=== PATIENT | female | born 1960 | race Caucasian/White ===

== ENCOUNTER 2022-07-06 21:04 | Inpatient (IN) | payer OTHER ==
[~2022-07-06] VITALS: Ht 165.1 cm; Wt 66.8 kg
[~2022-07-06 21:04] MED LIST: ALBU8.5H PO; BACTDSTA; BACTDSTA PO; BENZ-18; BENZ-18 PO; CEPH500C PO; DECA4TAB PO; DOCU100C16 PO; FAMO20TA5; FAMO20TA5 PO; K-TA10TA PO; LEVE500T5; LEVE500T5 PO; MIRA3350; NYST50SS PO; ONDA-84 PO; PROC10TA5 PO; SENN-83 PO
[2022-07-06] MEDS ORDERED: ROBI1LIQ9 PO (21:52)
[2022-07-06] MEDS: IPRATROPIUM 0.5MG/ALBUTEROL 2.5MG INH SOL UD 3ML (DUONEB) NEB SCH ×2 (22:10→22:21)
[2022-07-06] MEDS ORDERED: MIDAZOLAM INJ 2MG/2ML VIAL (J2250 PER 1MG) IV ONE (22:15)
[2022-07-06 22:18] LABS: BASO # 0.1 10^3/uL (0.0-0.2); BASO % 0.3 % (0.0-1.0); HEMATOCRIT 32.2 % (36.0-47.0); HEMOGLOBIN 10.6 g/dl (12.0-15.5); LYMPH # 0.5 10^3/uL (1.5-5.0); LYMPH % 1.5 % (24.0-44.0); MEAN CORPUSCULAR HEMOGLOBIN 30.9 pg (27.0-33.0); MEAN CORPUSCULAR HGB CONC 32.9 g/dl (32.0-36.5); MEAN CORPUSCULAR VOLUME 93.9 fl (80.0-96.0); MONO # 0.1 10^3/uL (0.0-0.8); MONO % 0.3 % (2.0-8.0); NEUTROPHILS # 31.7 10^3/uL (1.5-8.5); NEUTROPHILS % 95.1 % (36.0-66.0); PLATELET COUNT, AUTOMATED 358 10^3/uL (150-450); RED BLOOD COUNT 3.43 10^6/uL (4.00-5.40)
[2022-07-06 22:20] LABS: WHITE BLOOD COUNT 33.3 10^3/uL (4.0-10.0)
[2022-07-06 22:51] LABS: ALBUMIN 2.7 GM/DL (3.2-5.2); ALT/SGPT 60 U/L (12-78); BILIRUBIN,DIRECT 0.3 MG/DL (0.0-0.2); BILIRUBIN,TOTAL 0.6 MG/DL (0.2-1.0); BLOOD UREA NITROGEN 21 MG/DL (7-18); CALCIUM LEVEL 8.5 MG/DL (8.8-10.2); CARBON DIOXIDE LEVEL 25 MEQ/L (21-32); CHLORIDE LEVEL 99 MEQ/L (98-107); GLOMERULAR FILTRATION RATE > 60.0 (>45); GLUCOSE, FASTING 258 MG/DL (70-100); POTASSIUM SERUM 4.8 MEQ/L (3.5-5.1); SODIUM LEVEL 132 MEQ/L (136-145); TOTAL PROTEIN 6.4 GM/DL (6.4-8.2)
[2022-07-06 22:57] LABS: CK-MB VALUE MASS 2.8 NG/ML (<3.6); MB/CK RELATIVE INDEX 4.52 (< OR =4)
[2022-07-07 00:12] LABS: CK-MB VALUE MASS 3.6 NG/ML (<3.6); MB/CK RELATIVE INDEX 4.93 (< OR =4)
[2022-07-07] MEDS ORDERED: HEPARIN DRIP 25,000 UNITS in IV 1 EA IV SCH ×2 (01:40→05:15)
[2022-07-07] MEDS ORDERED: HEPARIN SOD (PORCINE) 5000UNITS/ML 1ML VIAL/SYRINGE IV ONE (01:40)
[2022-07-07] MEDS ORDERED: methylPREDNISolone 125MG 2ML VIAL IV ONE (01:40)
[2022-07-07] MEDS ORDERED: IPRATROPIUM 0.5MG/ALBUTEROL 2.5MG INH SOL UD 3ML (DUONEB) NEB ONE (02:50)
[2022-07-07] MEDS ORDERED: MIDAZOLAM INJ 2MG/2ML VIAL (J2250 PER 1MG) IV ONE (03:35)
[2022-07-07 03:50] LABS: ABG BASE EXCESS -3.7 (-2.0-2.0); ABG O2 SATURATION 98.5 % (95.0-99.0); ABG PARTIAL PRESSURE CO2 42.3 mmHg (35.0-45.0); ABG STANDARD HCO3 21.4 MEQ/L (22.0-26.0); ABG TOTAL CO2 23.3 MEQ/L (23.0-31.0); ABG pH (ARTERIAL) 7.334 UNITS (7.350-7.450)
[2022-07-07] MEDS ORDERED: CEPH500C PO (04:23)
[2022-07-07] MEDS ORDERED: HOME MED LIST COMPLETE! XX SCH (04:25)
[2022-07-07] MEDS ORDERED: HEPARIN SOD (PORCINE) 5000UNITS/ML 1ML VIAL/SYRINGE IV PRN (05:15)
[2022-07-07] MEDS: INSULIN LISPRO (NovoLOG) PER UNIT SC SCH ×4 (06:00→21:52)
[2022-07-07] MEDS ORDERED: NS 500 ML IV ONE (06:15)
[2022-07-07] MEDS ORDERED: DEXTROSE 50% 50 ML SYRINGE IV PRN (06:15)
[2022-07-07] MEDS ORDERED: GLUCOSE 4GM CHEW TABLET PO PRN (06:15)
[2022-07-07] MEDS ORDERED: IPRATROPIUM 0.5MG/ALBUTEROL 2.5MG INH SOL UD 3ML (DUONEB) NEB PRN (06:15)
[2022-07-07] MEDS ORDERED: GLUCAGON INJ 1MG VIAL SC PRN (06:15)
[2022-07-07] MEDS ORDERED: ASPIRIN 300 MG SUPP PR STA (06:33)
[2022-07-07] MEDS: NS 1,000 ML IV SCH ×2 (06:54→16:15)
[2022-07-07] MEDS: methylPREDNISolone 40MG 1ML VIAL IV SCH ×3 (07:00→18:40)
[2022-07-07] MEDS ORDERED: LevoFLOXacin IV 750 MG in IV 1 EA IV SCH (08:00)
[2022-07-07] MEDS ORDERED: ISOVUE-370 76% 100ML VIAL As Ordered ONE (08:13)
[2022-07-07] MEDS ORDERED: ASPIRIN 325 MG TAB PO ONE (09:00)
[2022-07-07] MEDS: PANTOPRAZOLE 40MG VIAL IV SCH (09:36)
[2022-07-07] MEDS: ENOXAPARIN 60MG/0.6ML SYRINGE (J1650 PER 10MG) SC SCH ×2 (09:36→21:11)
[2022-07-07] MEDS ORDERED: CLOPIDOGREL 300 MG TAB (PLAVIX) PO STA (10:43)
[2022-07-07] MEDS ORDERED: ATORVASTATIN 20 MG TAB PO ONE (10:45)
[2022-07-07] MEDS ORDERED: VANCOMYCIN HCL 1,000 MG, VIAL MATE ADAPTER 1 EACH in NS 250 ML IV SCH (10:50)
[2022-07-07] MEDS ORDERED: NITROGLYCERIN 0.4 MG SUBL TABLET SL PRN (10:50)
[2022-07-07] MEDS ORDERED: CLOPIDOGREL 75 MG TAB PO STA (10:56)
[2022-07-07 10:57] LABS: ABG BASE EXCESS -0.4 (-2.0-2.0); ABG HCO3 23.7 MEQ/L (22.0-26.0); ABG O2 SATURATION 96.9 % (95.0-99.0); ABG PARTIAL PRESSURE CO2 36.7 mmHg (35.0-45.0); ABG PARTIAL PRESSURE O2 95.7 mmHg (75.0-100.0); ABG STANDARD HCO3 24.1 MEQ/L (22.0-26.0); ABG TOTAL CO2 24.8 MEQ/L (23.0-31.0); ABG pH (ARTERIAL) 7.428 UNITS (7.350-7.450)
[2022-07-07 11:32] LABS: HEMATOCRIT 26.9 % (36.0-47.0); MEAN CORPUSCULAR HEMOGLOBIN 30.9 pg (27.0-33.0); MEAN CORPUSCULAR HGB CONC 33.5 g/dl (32.0-36.5); MEAN CORPUSCULAR VOLUME 92.4 fl (80.0-96.0); RED BLOOD COUNT 2.91 10^6/uL (4.00-5.40); WHITE BLOOD COUNT 22.4 10^3/uL (4.0-10.0)
[2022-07-07 11:35] LABS: PLATELET COUNT, AUTOMATED 244 10^3/uL (150-450)
[2022-07-07 11:49] VITALS: BP 100/57
[2022-07-07 11:54] LABS: LYMPHOCYTES 2 % (16-44); NEUTROPHILS 97 % (28-66)
[2022-07-07 11:57] LABS: ANISOCYTOSIS 1+; PLATELET ESTIMATE NORMAL (NORMAL)
[2022-07-07 12:02] LABS: ALBUMIN 2.4 GM/DL (3.2-5.2); ALT/SGPT 51 U/L (12-78); BILIRUBIN,TOTAL 0.7 MG/DL (0.2-1.0); BLOOD UREA NITROGEN 22 MG/DL (7-18); CALCIUM LEVEL 8.2 MG/DL (8.8-10.2); CARBON DIOXIDE LEVEL 24 MEQ/L (21-32); CHLORIDE LEVEL 103 MEQ/L (98-107); CHOLESTEROL LEVEL 163 MG/DL (<200); CHOLESTEROL RISK RATIO 2.397 (<5); CREATININE FOR GFR 0.61 MG/DL (0.55-1.30); GLOMERULAR FILTRATION RATE > 60.0 (>45); GLUCOSE, FASTING 125 MG/DL (70-100); HDL CHOLESTEROL 68 MG/DL (>40); LDL CHOLESTEROL 78 MG/DL (<100); NON-HDL-C 95 MG/DL; POTASSIUM SERUM 4.3 MEQ/L (3.5-5.1); SODIUM LEVEL 134 MEQ/L (136-145); TOTAL PROTEIN 5.9 GM/DL (6.4-8.2); TRIGLYCERIDES LEVEL 86 MG/DL (<150)
[2022-07-07 12:03] LABS: CK-MB VALUE MASS 8.6 NG/ML (<3.6); MB/CK RELATIVE INDEX 8.87 (< OR =4)
[2022-07-07] MEDS: PIPERACILLIN/TAZOBACTAM SOD 4.5 GM in D5W MINI-BAG PLUS 50 ML IV SCH ×2 (14:32→21:04)
[2022-07-07 14:57] LABS: MUCUS, URINE SMALL AMOUNT (NEGATIVE); SQUAMOUS EPITHELIAL CELL URINE SMALL AMOUNT /hpf (SMALL AMT)
[2022-07-07 14:59] LABS: BACTERIA, URINE NONE SEEN
[2022-07-07 15:00] LABS: AMORPHOUS SEDIMENT, URINE SMALL AMOUNT (NEGATIVE)
[2022-07-07] MEDS ORDERED: VANCOMYCIN HCL 750 MG, VIAL MATE ADAPTER 1 EACH in D5W 250 ML IV ONE (15:00)
[2022-07-07] MEDS ORDERED: VANCOMYCIN HCL 500 MG in D5W MINI-BAG PLUS 100 ML IV ONE (16:00)
[2022-07-07] MEDS: BENZONATATE 100MG CAPSULE PO PRN (16:24)
[2022-07-07 16:54] VITALS: BP 101/61
[2022-07-07 20:00] VITALS: BP 99/65
[2022-07-07] MEDS: guaiFENesin ER 600 MG TAB PO SCH (21:03)
[2022-07-07] MEDS: DOXYCYCLINE HYCLATE 100 MG in D5W MINI-BAG PLUS 100 ML IV SCH (21:12)
[2022-07-07 22:00] VITALS: BP 105/68
[2022-07-08] VITALS (16 sets, daily range): BP systolic 98–112; BP diastolic 51–76; O2SAT 93–99
[2022-07-08] MEDS: methylPREDNISolone 40MG 1ML VIAL IV SCH ×4 (02:21→18:24)
[2022-07-08] MEDS: NS 1,000 ML IV SCH (02:21)
[2022-07-08] MEDS: PIPERACILLIN/TAZOBACTAM SOD 4.5 GM in D5W MINI-BAG PLUS 50 ML IV SCH ×4 (02:21→20:43)
[2022-07-08] MEDS ORDERED: VANCOMYCIN HCL 1,000 MG, VIAL MATE ADAPTER 1 EACH in D5W 250 ML IV SCH (03:00)
[2022-07-08 05:23] LABS: HEMATOCRIT 25.1 % (36.0-47.0); HEMOGLOBIN 8.2 g/dl (12.0-15.5); MEAN CORPUSCULAR HEMOGLOBIN 30.7 pg (27.0-33.0); MEAN CORPUSCULAR HGB CONC 32.7 g/dl (32.0-36.5); PLATELET COUNT, AUTOMATED 235 10^3/uL (150-450); RED BLOOD COUNT 2.67 10^6/uL (4.00-5.40); WHITE BLOOD COUNT 26.4 10^3/uL (4.0-10.0)
[2022-07-08 05:39] LABS: INR 1.17; PROTHROMBIN TIME 15.3 SECONDS (12.7-14.5)
[2022-07-08 05:40] LABS: PARTIAL THROMBOPLASTIN TIME 41.7 SECONDS (25.9-37.0)
[2022-07-08 05:57] LABS: ALBUMIN 2.2 GM/DL (3.2-5.2); ALT/SGPT 42 U/L (12-78); BILIRUBIN,TOTAL 0.8 MG/DL (0.2-1.0); BLOOD UREA NITROGEN 19 MG/DL (7-18); CALCIUM LEVEL 8.1 MG/DL (8.8-10.2); CARBON DIOXIDE LEVEL 27 MEQ/L (21-32); CHLORIDE LEVEL 104 MEQ/L (98-107); CREATININE FOR GFR 0.64 MG/DL (0.55-1.30); GLOMERULAR FILTRATION RATE > 60.0 (>45); GLUCOSE, FASTING 140 MG/DL (70-100); POTASSIUM SERUM 4.2 MEQ/L (3.5-5.1); SODIUM LEVEL 137 MEQ/L (136-145); TOTAL PROTEIN 5.5 GM/DL (6.4-8.2)
[2022-07-08] MEDS: INSULIN LISPRO (NovoLOG) PER UNIT SC SCH ×3 (06:00→17:55)
[2022-07-08 06:48] LABS: NEUTROPHILS 100 % (28-66)
[2022-07-08 06:49] LABS: ANISOCYTOSIS 1+; PLATELET ESTIMATE NORMAL (NORMAL)
[2022-07-08] MEDS: PANTOPRAZOLE 40MG VIAL IV SCH (08:58)
[2022-07-08] MEDS: ASPIRIN 81 MG CHEW TABLET PO SCH (08:59)
[2022-07-08] MEDS: guaiFENesin ER 600 MG TAB PO SCH ×2 (08:59→20:42)
[2022-07-08] MEDS ORDERED: CLOPIDOGREL 75 MG TAB PO SCH (09:00)
[2022-07-08] MEDS: DOXYCYCLINE HYCLATE 100 MG in D5W MINI-BAG PLUS 100 ML IV SCH ×2 (10:44→20:43)
[2022-07-08] MEDS: ATORVASTATIN 20 MG TAB PO SCH (20:42)
[2022-07-08] MEDS: BENZONATATE 100MG CAPSULE PO PRN (21:28)
[2022-07-09] VITALS (11 sets, daily range): BP systolic 111–121; BP diastolic 56–78; O2SAT 96–98
[2022-07-09] MEDS: INSULIN LISPRO (NovoLOG) PER UNIT SC SCH ×2 (00:28→06:00)
[2022-07-09] MEDS: methylPREDNISolone 40MG 1ML VIAL IV SCH ×2 (00:39→06:32)
[2022-07-09] MEDS: PIPERACILLIN/TAZOBACTAM SOD 4.5 GM in D5W MINI-BAG PLUS 50 ML IV SCH ×4 (00:39→20:48)
[2022-07-09] MEDS: CARVedilol 3.125 MG TAB PO SCH ×2 (08:41→20:53)
[2022-07-09] MEDS: ENTRESTO 24-26MG TABLET (SACUBITRIL/VALSARTAN) PO SCH ×2 (08:42→20:51)
[2022-07-09] MEDS: MIDODRINE 5 MG TAB PO SCH ×3 (08:54→16:13)
[2022-07-09] MEDS: predniSONE 20 MG TAB PO SCH ×2 (08:54→20:53)
[2022-07-09] MEDS: guaiFENesin ER 600 MG TAB PO SCH ×2 (08:54→20:51)
[2022-07-09] MEDS: ASPIRIN 81 MG CHEW TABLET PO SCH (08:54)
[2022-07-09] MEDS: PANTOPRAZOLE 40MG VIAL IV SCH (08:55)
[2022-07-09] MEDS: DOXYCYCLINE HYCLATE 100 MG in D5W MINI-BAG PLUS 100 ML IV SCH ×2 (10:42→20:54)
[2022-07-09] MEDS: LACTOBACILLUS ACIDOPHILUS CAP (BACID) PO SCH ×3 (12:20→20:52)
[2022-07-09] MEDS: ATORVASTATIN 20 MG TAB PO SCH (20:52)
[2022-07-10] VITALS (16 sets, daily range): BP systolic 82–102; BP diastolic 50–64; O2SAT 93
[2022-07-10] MEDS: PIPERACILLIN/TAZOBACTAM SOD 4.5 GM in D5W MINI-BAG PLUS 50 ML IV SCH ×4 (02:29→22:17)
[2022-07-10] MEDS ORDERED: ACETAMINOPHEN TAB 650MG DOSE (2X325MG) PO PRN (02:45)
[2022-07-10 06:20] LABS: HEMATOCRIT 23.2 % (36.0-47.0); HEMOGLOBIN 7.6 g/dl (12.0-15.5); MEAN CORPUSCULAR HEMOGLOBIN 30.3 pg (27.0-33.0); MEAN CORPUSCULAR HGB CONC 32.8 g/dl (32.0-36.5); MEAN CORPUSCULAR VOLUME 92.4 fl (80.0-96.0); PLATELET COUNT, AUTOMATED 185 10^3/uL (150-450); RED BLOOD COUNT 2.51 10^6/uL (4.00-5.40); WHITE BLOOD COUNT 13.6 10^3/uL (4.0-10.0)
[2022-07-10 06:45] LABS: BLOOD UREA NITROGEN 16 MG/DL (7-18); CALCIUM LEVEL 8.3 MG/DL (8.8-10.2); CARBON DIOXIDE LEVEL 26 MEQ/L (21-32); CHLORIDE LEVEL 104 MEQ/L (98-107); GLOMERULAR FILTRATION RATE > 60.0 (>45); GLUCOSE, FASTING 110 MG/DL (70-100); SODIUM LEVEL 138 MEQ/L (136-145)
[2022-07-10 08:52] LABS: HEMATOCRIT 23.7 % (36.0-47.0); HEMOGLOBIN 7.8 g/dl (12.0-15.5)
[2022-07-10] MEDS: CARVedilol 3.125 MG TAB PO SCH ×2 (09:00→21:00)
[2022-07-10] MEDS: SPIRONOLACTONE 6.25 MG PER 1/4 TAB PO SCH ×2 (09:00→09:50)
[2022-07-10] MEDS: ENTRESTO 24-26MG TABLET (SACUBITRIL/VALSARTAN) PO SCH ×2 (09:00→21:00)
[2022-07-10] MEDS: ASPIRIN 81 MG CHEW TABLET PO SCH (09:50)
[2022-07-10] MEDS: predniSONE 20 MG TAB PO SCH ×2 (09:53→21:22)
[2022-07-10] MEDS: LACTOBACILLUS ACIDOPHILUS CAP (BACID) PO SCH ×4 (09:53→21:22)
[2022-07-10] MEDS: MIDODRINE 5 MG TAB PO SCH ×3 (09:53→15:59)
[2022-07-10] MEDS: guaiFENesin ER 600 MG TAB PO SCH ×2 (09:54→21:22)
[2022-07-10] MEDS: LevoFLOXacin 750 MG TABLET PO SCH (09:54)
[2022-07-10] MEDS ORDERED: ACETAMINOPHEN TAB 650MG DOSE (2X325MG) PO ONE (11:00)
[2022-07-10] MEDS ORDERED: diphenhydrAMINE 25MG CAP PO ONE (11:00)
[2022-07-10] MEDS ORDERED: NS 500 ML IV ONE ×2 (11:00→17:40)
[2022-07-10] MEDS: PANTOPRAZOLE 40MG VIAL IV SCH (11:15)
[2022-07-10] MEDS: ATORVASTATIN 20 MG TAB PO SCH (21:22)
[2022-07-10 23:27] LABS: HEMATOCRIT 27.6 % (36.0-47.0); HEMOGLOBIN 9.6 g/dl (12.0-15.5)
[2022-07-11] MEDS: PIPERACILLIN/TAZOBACTAM SOD 4.5 GM in D5W MINI-BAG PLUS 50 ML IV SCH ×4 (03:35→20:37)
[2022-07-11] MEDS: LevoFLOXacin 750 MG TABLET PO SCH (05:03)
[2022-07-11 05:44] VITALS: BP 106/66
[2022-07-11 06:44] LABS: HEMATOCRIT 28.9 % (36.0-47.0); HEMOGLOBIN 10.1 g/dl (12.0-15.5); MEAN CORPUSCULAR HGB CONC 34.9 g/dl (32.0-36.5); MEAN CORPUSCULAR VOLUME 88.7 fl (80.0-96.0); PLATELET COUNT, AUTOMATED 142 10^3/uL (150-450); RED BLOOD COUNT 3.26 10^6/uL (4.00-5.40); WHITE BLOOD COUNT 8.2 10^3/uL (4.0-10.0)
[2022-07-11 07:13] LABS: BLOOD UREA NITROGEN 12 MG/DL (7-18); CALCIUM LEVEL 8.5 MG/DL (8.8-10.2); CARBON DIOXIDE LEVEL 24 MEQ/L (21-32); CHLORIDE LEVEL 104 MEQ/L (98-107); CREATININE FOR GFR 0.35 MG/DL (0.55-1.30); GLOMERULAR FILTRATION RATE > 60.0 (>45); GLUCOSE, FASTING 98 MG/DL (70-100); POTASSIUM SERUM 3.3 MEQ/L (3.5-5.1); SODIUM LEVEL 134 MEQ/L (136-145)
[2022-07-11] MEDS ORDERED: POTASSIUM CHLORIDE 10MEQ SR TABLET PO ONE (08:00)
[2022-07-11 08:15] VITALS: BP 107/70
[2022-07-11] MEDS: PANTOPRAZOLE 40MG VIAL IV SCH (08:15)
[2022-07-11] MEDS: guaiFENesin ER 600 MG TAB PO SCH ×2 (08:16→20:37)
[2022-07-11] MEDS: MIDODRINE 5 MG TAB PO SCH ×3 (08:16→17:30)
[2022-07-11] MEDS: LACTOBACILLUS ACIDOPHILUS CAP (BACID) PO SCH ×4 (08:16→20:38)
[2022-07-11] MEDS: predniSONE 20 MG TAB PO SCH ×2 (08:16→20:38)
[2022-07-11] MEDS: CARVedilol 3.125 MG TAB PO SCH ×2 (08:16→20:38)
[2022-07-11] MEDS: ASPIRIN 81 MG CHEW TABLET PO SCH (08:16)
[2022-07-11] MEDS: ENTRESTO 24-26MG TABLET (SACUBITRIL/VALSARTAN) PO SCH ×2 (08:16→20:39)
[2022-07-11 09:00] VITALS: O2SAT 95
[2022-07-11 09:02] LABS: CK-MB VALUE MASS < 1.0 NG/ML (<3.6); CPK CREATINE PHOSPHOKINASE 70 U/L (26-192); MB/CK RELATIVE INDEX 1.43 (< OR =4)
[2022-07-11 14:00] VITALS: BP 103/69
[2022-07-11] MEDS: ATORVASTATIN 20 MG TAB PO SCH (20:38)
[2022-07-11 22:00] VITALS: BP 113/70
[2022-07-12] MEDS: PIPERACILLIN/TAZOBACTAM SOD 4.5 GM in D5W MINI-BAG PLUS 50 ML IV SCH ×4 (01:59→20:20)
[2022-07-12 02:30] VITALS: O2SAT 96
[2022-07-12] MEDS: LevoFLOXacin 750 MG TABLET PO SCH (05:14)
[2022-07-12 06:00] VITALS: BP 106/73
[2022-07-12 06:38] LABS: HEMATOCRIT 30.9 % (36.0-47.0); HEMOGLOBIN 10.3 g/dl (12.0-15.5); MEAN CORPUSCULAR HEMOGLOBIN 29.8 pg (27.0-33.0); MEAN CORPUSCULAR HGB CONC 33.3 g/dl (32.0-36.5); MEAN CORPUSCULAR VOLUME 89.3 fl (80.0-96.0); PLATELET COUNT, AUTOMATED 138 10^3/uL (150-450); RED BLOOD COUNT 3.46 10^6/uL (4.00-5.40); WHITE BLOOD COUNT 5.5 10^3/uL (4.0-10.0)
[2022-07-12 07:06] LABS: BLOOD UREA NITROGEN 15 MG/DL (7-18); CALCIUM LEVEL 8.3 MG/DL (8.8-10.2); CARBON DIOXIDE LEVEL 25 MEQ/L (21-32); CHLORIDE LEVEL 105 MEQ/L (98-107); CREATININE FOR GFR 0.34 MG/DL (0.55-1.30); GLOMERULAR FILTRATION RATE > 60.0 (>45); GLUCOSE, FASTING 103 MG/DL (70-100); POTASSIUM SERUM 3.6 MEQ/L (3.5-5.1); SODIUM LEVEL 138 MEQ/L (136-145)
[2022-07-12] MEDS: LACTOBACILLUS ACIDOPHILUS CAP (BACID) PO SCH ×4 (08:20→20:19)
[2022-07-12] MEDS: guaiFENesin ER 600 MG TAB PO SCH ×2 (08:20→20:20)
[2022-07-12 08:21] VITALS: BP 100/66
[2022-07-12] MEDS: predniSONE 20 MG TAB PO SCH ×2 (08:21→20:19)
[2022-07-12] MEDS: ASPIRIN 81 MG CHEW TABLET PO SCH (08:21)
[2022-07-12] MEDS: MIDODRINE 5 MG TAB PO SCH ×2 (08:21→12:39)
[2022-07-12] MEDS: CARVedilol 3.125 MG TAB PO SCH (08:21)
[2022-07-12] MEDS: PANTOPRAZOLE 40MG VIAL IV SCH (08:21)
[2022-07-12] MEDS: ENTRESTO 24-26MG TABLET (SACUBITRIL/VALSARTAN) PO SCH (08:22)
[2022-07-12 12:40] VITALS: BP 121/77
[2022-07-12] MEDS: SPIRONOLACTONE 12.5MG PER 1/2 TABLET PO SCH (13:55)
[2022-07-12 14:00] VITALS: BP 108/68
[2022-07-12] MEDS: ATORVASTATIN 20 MG TAB PO SCH (20:20)
[2022-07-12 22:00] VITALS: BP 112/68
[2022-07-13 02:37] VITALS: O2SAT 97
[2022-07-13] MEDS: PIPERACILLIN/TAZOBACTAM SOD 4.5 GM in D5W MINI-BAG PLUS 50 ML IV SCH ×4 (02:37→20:21)
[2022-07-13] MEDS: LevoFLOXacin 750 MG TABLET PO SCH (05:27)
[2022-07-13 06:00] VITALS: BP 115/69
[2022-07-13 06:07] LABS: HEMATOCRIT 29.8 % (36.0-47.0); HEMOGLOBIN 10.2 g/dl (12.0-15.5); MEAN CORPUSCULAR HEMOGLOBIN 30.8 pg (27.0-33.0); MEAN CORPUSCULAR HGB CONC 34.2 g/dl (32.0-36.5); PLATELET COUNT, AUTOMATED 119 10^3/uL (150-450); RED BLOOD COUNT 3.31 10^6/uL (4.00-5.40); WHITE BLOOD COUNT 3.9 10^3/uL (4.0-10.0)
[2022-07-13 06:42] LABS: BLOOD UREA NITROGEN 14 MG/DL (7-18); CALCIUM LEVEL 8.3 MG/DL (8.8-10.2); CARBON DIOXIDE LEVEL 25 MEQ/L (21-32); CHLORIDE LEVEL 106 MEQ/L (98-107); CREATININE FOR GFR 0.44 MG/DL (0.55-1.30); GLOMERULAR FILTRATION RATE > 60.0 (>45); GLUCOSE, FASTING 113 MG/DL (70-100); POTASSIUM SERUM 3.7 MEQ/L (3.5-5.1); SODIUM LEVEL 138 MEQ/L (136-145)
[2022-07-13] MEDS: PANTOPRAZOLE 40MG VIAL IV SCH (08:09)
[2022-07-13] MEDS: LACTOBACILLUS ACIDOPHILUS CAP (BACID) PO SCH ×4 (08:09→20:20)
[2022-07-13] MEDS: predniSONE 20 MG TAB PO SCH ×2 (08:09→20:21)
[2022-07-13] MEDS: guaiFENesin ER 600 MG TAB PO SCH ×2 (08:09→20:21)
[2022-07-13] MEDS: SPIRONOLACTONE 12.5MG PER 1/2 TABLET PO SCH (08:10)
[2022-07-13] MEDS: ASPIRIN 81 MG CHEW TABLET PO SCH (08:10)
[2022-07-13] MEDS: ENTRESTO 24-26MG TABLET (SACUBITRIL/VALSARTAN) PO SCH ×2 (08:10→20:25)
[2022-07-13 15:00] VITALS: BP 99/66
[2022-07-13] MEDS: ATORVASTATIN 20 MG TAB PO SCH (20:21)
[2022-07-13 20:25] VITALS: BP 100/66
[2022-07-14 00:59] VITALS: O2SAT 95
[2022-07-14] MEDS: PIPERACILLIN/TAZOBACTAM SOD 4.5 GM in D5W MINI-BAG PLUS 50 ML IV SCH ×2 (02:14→07:54)
[2022-07-14] MEDS: LevoFLOXacin 750 MG TABLET PO SCH (05:19)
[2022-07-14 05:28] VITALS: BP 127/78
[2022-07-14 06:53] LABS: HEMATOCRIT 31.1 % (36.0-47.0); HEMOGLOBIN 10.6 g/dl (12.0-15.5); MEAN CORPUSCULAR HGB CONC 34.1 g/dl (32.0-36.5); MEAN CORPUSCULAR VOLUME 90.9 fl (80.0-96.0); PLATELET COUNT, AUTOMATED 107 10^3/uL (150-450); RED BLOOD COUNT 3.42 10^6/uL (4.00-5.40); WHITE BLOOD COUNT 2.8 10^3/uL (4.0-10.0)
[2022-07-14 07:17] LABS: BLOOD UREA NITROGEN 11 MG/DL (7-18); CALCIUM LEVEL 8.1 MG/DL (8.8-10.2); CARBON DIOXIDE LEVEL 24 MEQ/L (21-32); CHLORIDE LEVEL 105 MEQ/L (98-107); GLOMERULAR FILTRATION RATE > 60.0 (>45); GLUCOSE, FASTING 116 MG/DL (70-100); POTASSIUM SERUM 3.3 MEQ/L (3.5-5.1); SODIUM LEVEL 137 MEQ/L (136-145)
[2022-07-14] MEDS: guaiFENesin ER 600 MG TAB PO SCH (07:58)
[2022-07-14] MEDS: ENTRESTO 24-26MG TABLET (SACUBITRIL/VALSARTAN) PO SCH (07:59)
[2022-07-14] MEDS: PANTOPRAZOLE 40MG VIAL IV SCH (07:59)
[2022-07-14] MEDS: predniSONE 20 MG TAB PO SCH (07:59)
[2022-07-14] MEDS: ASPIRIN 81 MG CHEW TABLET PO SCH (07:59)
[2022-07-14] MEDS: SPIRONOLACTONE 12.5MG PER 1/2 TABLET PO SCH (07:59)
[2022-07-14] MEDS: LACTOBACILLUS ACIDOPHILUS CAP (BACID) PO SCH (07:59)
[2022-07-14] MEDS ORDERED: POTASSIUM CHLORIDE 10MEQ SR TABLET PO ONE (09:00)
[2022-07-14] MEDS ORDERED: ASPI81CH8 PO (09:33)
[2022-07-14] MEDS ORDERED: BACITAB PO (09:33)
[2022-07-14] MEDS ORDERED: AMOX875T2 PO (09:33)
[2022-07-14] MEDS ORDERED: ENTR1TAB PO (09:33)
[2022-07-14] MEDS ORDERED: ATOR1TAB21 PO (09:33)
[2022-07-14] MEDS ORDERED: SELF1KIT MC (09:33)
[2022-07-14] MEDS ORDERED: ALDA25TA2 PO (09:33)
[2022-07-14] MEDS ORDERED: PRED10TA2 PO (09:33)
[2022-07-14] MEDS ORDERED: MUCI600T31 PO (09:33)
== END 2022-07-14 12:17 | disposition home or self-care (01) | DRG 720 ==
LOC: M ED 21:04 → M ED INP 07-07 06:01 → M PCU 07-07 06:01 → ENRESERV 07-07 10:16 → M PCU 07-07 11:37 → M MSPAV 07-09 10:06
PROVIDERS: ADMIT Internal Medicine; ATTEND General Practice
PROC: 30233N1 Transfusion of Nonautologous Red Blood Cells into Peripheral Vein, Percutaneous Approach (ICD-10-PCS; principal; 2022-07-10)
DX: A41.9 Sepsis, unspecified organism (principal); J96.21 Acute and chronic respiratory failure with hypoxia; I21.4 Non-ST elevation (NSTEMI) myocardial infarction; J15.1 Pneumonia due to Pseudomonas; C79.31 Secondary malignant neoplasm of brain; C79.70 Secondary malignant neoplasm of unspecified adrenal gland; C78.7 Secondary malignant neoplasm of liver and intrahepatic bile duct; J96.22 Acute and chronic respiratory failure with hypercapnia; I50.22 Chronic systolic (congestive) heart failure; I95.2 Hypotension due to drugs; J44.1 Chronic obstructive pulmonary disease with (acute) exacerbation; I51.81 Takotsubo syndrome; E87.1 Hypo-osmolality and hyponatremia; C34.90 Malignant neoplasm of unspecified part of unspecified bronchus or lung; Z92.21 Personal history of antineoplastic chemotherapy; Z79.899 Other long term (current) drug therapy; Z79.82 Long term (current) use of aspirin; Z66 Do not resuscitate; Z95.0 Presence of cardiac pacemaker; Z87.891 Personal history of nicotine dependence; K21.9 Gastro-esophageal reflux disease without esophagitis

== ENCOUNTER 2022-08-03 19:14 | Inpatient (IN) | payer OTHER ==
[~2022-08-03] VITALS: Ht 165.1 cm; Wt 62.0 kg
[~2022-08-03 19:14] MED LIST changes: +ALDA25TA2 PO; +AMOX875T2 PO; +ASPI81CH8 PO; +ATOR1TAB21 PO; +BACITAB PO; +ENTR1TAB PO; +MUCI600T31 PO; +PRED10TA2 PO; +ROBI1LIQ9 PO; +SELF1KIT MC
[2022-08-03] MEDS ORDERED: NS 1,850 ML in IV 1 EA IV ONE (19:50)
[2022-08-03] MEDS ORDERED: CEFEPIME HCL 2 GM in D5W MINI-BAG PLUS 50 ML IV ONE (19:50)
[2022-08-03] MEDS ORDERED: ACETAMINOPHEN TAB 650MG DOSE (2X325MG) PO ONE (20:00)
[2022-08-03 20:33] LABS: HEMATOCRIT 25.4 % (36.0-47.0); HEMOGLOBIN 8.5 g/dl (12.0-15.5); MEAN CORPUSCULAR HEMOGLOBIN 31.1 pg (27.0-33.0); MEAN CORPUSCULAR HGB CONC 33.5 g/dl (32.0-36.5); PLATELET COUNT, AUTOMATED 41 10^3/uL (150-450); RED BLOOD COUNT 2.73 10^6/uL (4.00-5.40); WHITE BLOOD COUNT 2.6 10^3/uL (4.0-10.0)
[2022-08-03 20:46] LABS: ATYPICAL LYMPH 4 % (0-5); LYMPHOCYTES 8 % (16-44); MONOCYTES 15 % (0-5); MYELOCYTES 5 % (0-0); NEUTROPHILS 68 % (28-66); PLATELET ESTIMATE MARKED DECREASE (NORMAL)
[2022-08-03 20:47] LABS: ANISOCYTOSIS 1+; POIKILOCYTOSIS 1+; POLYCHROMASIA 1+
[2022-08-03 20:48] LABS: TOXIC GRANULATION 1+; TOXIC VACUOLATION 1+
[2022-08-03 21:04] LABS: CK-MB VALUE MASS < 1.0 NG/ML (<3.6); CPK CREATINE PHOSPHOKINASE 51 U/L (26-192); MB/CK RELATIVE INDEX 1.96 (< OR =4)
[2022-08-03 21:38] LABS: ALBUMIN 2.3 GM/DL (3.2-5.2); BILIRUBIN,DIRECT 0.5 MG/DL (0.0-0.2); BILIRUBIN,TOTAL 0.8 MG/DL (0.2-1.0); CALCIUM LEVEL 7.7 MG/DL (8.8-10.2); CREATININE FOR GFR 1.31 MG/DL (0.55-1.30); GLOMERULAR FILTRATION RATE 43.7 (>45); POTASSIUM SERUM 2.8 MEQ/L (3.5-5.1); THYROID STIMULATING HORMONE 0.372 uIU/ML (0.358-3.740); TOTAL PROTEIN 5.1 GM/DL (6.4-8.2)
[2022-08-03] MEDS ORDERED: KCL 10MEQ/100ML SWI (KRUN) 10 MEQ in IV 1 EA IV ONE (22:00)
[2022-08-03] MEDS ORDERED: POTASSIUM CHLORIDE 10MEQ SR TABLET PO ONE (22:00)
[2022-08-03] MEDS ORDERED: IPRATROPIUM 0.5MG/ALBUTEROL 2.5MG INH SOL UD 3ML (DUONEB) NEB PRN (22:15)
[2022-08-03] MEDS ORDERED: PIPERACILLIN/TAZOBACTAM SOD 3.375 GM in D5W MINI-BAG PLUS 50 ML IV SCH (22:15)
[2022-08-03] MEDS ORDERED: VANCOMYCIN HCL IV ONE (22:15)
[2022-08-03] MEDS ORDERED: FLUID PLACE HOLDER IV ONE (22:15)
[2022-08-03] MEDS: NS 1,000 ML IV SCH (22:15)
[2022-08-03] MEDS ORDERED: ACETAMINOPHEN TAB 650MG DOSE (2X325MG) PO PRN (22:15)
[2022-08-03] MEDS ORDERED: ONDANSETRON 4MG 2ML VIAL IV PRN (22:15)
[2022-08-03] MEDS ORDERED: guaiFENesin ER 600 MG TAB PO PRN (22:15)
[2022-08-03] MEDS: PIPERACILLIN/TAZOBACTAM SOD 4.5 GM in D5W MINI-BAG PLUS 50 ML IV SCH (23:00)
[2022-08-03] MEDS ORDERED: NS 1,000 ML IV ONE (23:10)
[2022-08-03 23:15] LABS: VENOUS HCO3 18.9 MEQ/L (23.0-27.0); VENOUS O2 SATURATION 98.6 % (60.0-80.0); VENOUS PARTIAL PRESSURE CO2 26.2 mmHg (38.0-50.0); VENOUS PARTIAL PRESSURE O2 158.6 mmHg (30.0-50.0); VENOUS PH 7.477 UNITS (7.330-7.430); VENOUS STANDARD HCO3 21.1 MEQ/L; VENOUS TOTAL CO2 19.7 MEQ/L (24.0-28.0)
[2022-08-03 23:30] LABS: INR 1.46; PROTHROMBIN TIME 18.1 SECONDS (12.7-14.5)
[2022-08-03 23:31] LABS: PARTIAL THROMBOPLASTIN TIME 39.3 SECONDS (25.9-37.0)
[2022-08-04] VITALS (8 sets, daily range): BP systolic 98–142; BP diastolic 50–81
[2022-08-04] MEDS ORDERED: VANCOMYCIN HCL 1,000 MG, VIAL MATE ADAPTER 1 EACH in D5W 250 ML IV ONE ×3
[2022-08-04] MEDS ORDERED: PANTOPRAZOLE 40MG VIAL IV ONE
[2022-08-04 01:04] LABS: BLOOD UREA NITROGEN 19 MG/DL (7-18); CARBON DIOXIDE LEVEL 21 MEQ/L (21-32); CHLORIDE LEVEL 109 MEQ/L (98-107); CREATININE FOR GFR 0.97 MG/DL (0.55-1.30); GLOMERULAR FILTRATION RATE > 60.0 (>45); GLUCOSE, FASTING 142 MG/DL (70-100); POTASSIUM SERUM 2.9 MEQ/L (3.5-5.1); SODIUM LEVEL 138 MEQ/L (136-145)
[2022-08-04] MEDS: levETIRAcetam 250MG TABLET (KEPPRA) PO SCH ×3 (01:12→20:17)
[2022-08-04] MEDS ORDERED: SODIUM CHLORIDE 0.9% 1000ML IV ONE (02:00)
[2022-08-04] MEDS: MAG SULF 1GM/100ML (MAG RUN) 1 GM in IV 1 EA IV SCH ×2 (02:57→04:11)
[2022-08-04] MEDS ORDERED: POTASSIUM CHLORIDE 10MEQ SR TABLET PO ONE ×2 (03:00→06:00)
[2022-08-04] MEDS ORDERED: KCL 10MEQ/100ML SWI (KRUN) 10 MEQ in IV 1 EA IV ONE (05:00)
[2022-08-04 05:14] LABS: HEMATOCRIT 21.6 % (36.0-47.0); MEAN CORPUSCULAR HEMOGLOBIN 31.3 pg (27.0-33.0); MEAN CORPUSCULAR HGB CONC 32.4 g/dl (32.0-36.5); MEAN CORPUSCULAR VOLUME 96.4 fl (80.0-96.0); RED BLOOD COUNT 2.24 10^6/uL (4.00-5.40); WHITE BLOOD COUNT 2.9 10^3/uL (4.0-10.0)
[2022-08-04 05:16] LABS: PLATELET COUNT, AUTOMATED 38 10^3/uL (150-450)
[2022-08-04 05:44] LABS: ALBUMIN 1.7 GM/DL (3.2-5.2); ALT/SGPT 18 U/L (12-78); BILIRUBIN,TOTAL 0.6 MG/DL (0.2-1.0); BLOOD UREA NITROGEN 19 MG/DL (7-18); CARBON DIOXIDE LEVEL 20 MEQ/L (21-32); CHLORIDE LEVEL 111 MEQ/L (98-107); CREATININE FOR GFR 0.93 MG/DL (0.55-1.30); GLOMERULAR FILTRATION RATE > 60.0 (>45); GLUCOSE, FASTING 175 MG/DL (70-100); POTASSIUM SERUM 3.5 MEQ/L (3.5-5.1); SODIUM LEVEL 140 MEQ/L (136-145); TOTAL PROTEIN 4.1 GM/DL (6.4-8.2)
[2022-08-04] MEDS ORDERED: NS 500 ML IV ONE (06:00)
[2022-08-04] MEDS: PIPERACILLIN/TAZOBACTAM SOD 4.5 GM in D5W MINI-BAG PLUS 50 ML IV SCH ×4 (06:21→22:43)
[2022-08-04] MEDS: NS 1,000 ML IV SCH ×2 (08:15→17:18)
[2022-08-04] MEDS ORDERED: DOCUSATE SODIUM 100MG CAPSULE PO SCH (09:00)
[2022-08-04] MEDS ORDERED: SENNA 8.6 MG TAB (SENOKOT) PO SCH (09:00)
[2022-08-04] MEDS: LACTOBACILLUS ACIDOPHILUS CAP (BACID) PO SCH (09:02)
[2022-08-04] MEDS ORDERED: ISOVUE-370 76% 100ML VIAL As Ordered ONE (09:25)
[2022-08-04] MEDS: DOXYCYCLINE HYCLATE 100MG TABLET PO SCH ×2 (09:33→20:17)
[2022-08-04] MEDS ORDERED: ATOR80TA59 PO (09:42)
[2022-08-04] MEDS ORDERED: MUCI1TAB16 PO (09:42)
[2022-08-04] MEDS ORDERED: ALDA25TA2 PO (09:42)
[2022-08-04] MEDS ORDERED: ENTR1TAB PO (09:42)
[2022-08-04] MEDS ORDERED: ASPI81CH33 PO (09:42)
[2022-08-04] MEDS ORDERED: HOME MED LIST COMPLETE! XX SCH (09:45)
[2022-08-04 10:32] LABS: FERRITIN 4533 NG/ML (8-252); IRON (FE) 16 UG/DL (50-170); PERCENT SATURATION 15.1 % (13.2-45.0); TOTAL IRON BINDING CAPACITY 106 UG/DL (250-450)
[2022-08-04 12:43] LABS: APPEARANCE, URINE MANUAL CLEAR (CLEAR); COLOR, URINE MANUAL YELLOW (YELLOW)
[2022-08-04 12:49] LABS: BILIRUBIN, URINE MANUAL NEGATIVE (NEGATIVE); BLOOD URINE MANUAL NEGATIVE (NEGATIVE); GLUCOSE, URINE (UA) MANUAL NEGATIVE (NEGATIVE); KETONE, URINE MANUAL NEGATIVE (NEGATIVE); LEUKOCYTE ESTERASE, URINE MAN POSITIVE (NEGATIVE); NITRITE, URINE MANUAL NEGATIVE (NEGATIVE); PROTEIN, URINE MANUAL NEGATIVE (NEGATIVE); UROBILINOGEN, URINE MANUAL NORMAL (NORMAL)
[2022-08-04 13:07] LABS: BACTERIA, URINE NONE SEEN; HYALINE CAST, URINE NONE SEEN /lpf (0-1); RBC, URINE 0-1 /hpf (0-3); SQUAMOUS EPITHELIAL CELL URINE SMALL AMOUNT /hpf (SMALL AMT)
[2022-08-04] MEDS: BUDESONIDE 180MCG INHALER (PULMICORT FLEXHALER) INH SCH ×2 (13:18→19:29)
[2022-08-04 13:40] LABS: HEMATOCRIT 27.9 % (36.0-47.0)
[2022-08-04 13:46] LABS: HEMOGLOBIN 9.4 g/dl (12.0-15.5)
[2022-08-04] MEDS ORDERED: VANCOMYCIN HCL 1,000 MG, VIAL MATE ADAPTER 1 EACH in D5W 250 ML IV SCH (18:00)
[2022-08-04] MEDS: FAMOTIDINE 20 MG TAB PO SCH (20:17)
[2022-08-04] MEDS: ATORVASTATIN 20 MG TAB PO SCH (20:17)
[2022-08-05] VITALS: BP 119/54
[2022-08-05 04:00] VITALS: BP 107/56
[2022-08-05] MEDS: PIPERACILLIN/TAZOBACTAM SOD 4.5 GM in D5W MINI-BAG PLUS 50 ML IV SCH ×4 (05:08→23:32)
[2022-08-05 07:22] VITALS: BP 117/58
[2022-08-05] MEDS: BUDESONIDE 180MCG INHALER (PULMICORT FLEXHALER) INH SCH ×2 (07:33→19:13)
[2022-08-05 07:40] LABS: BLOOD UREA NITROGEN 12 MG/DL (7-18); CALCIUM LEVEL 7.6 MG/DL (8.8-10.2); CARBON DIOXIDE LEVEL 22 MEQ/L (21-32); CHLORIDE LEVEL 110 MEQ/L (98-107); CREATININE FOR GFR 0.34 MG/DL (0.55-1.30); GLOMERULAR FILTRATION RATE > 60.0 (>45); GLUCOSE, FASTING 79 MG/DL (70-100); MAGNESIUM LEVEL 1.9 MG/DL (1.8-2.4); PHOSPHORUS LEVEL 2.8 MG/DL (2.5-4.9); POTASSIUM SERUM 2.6 MEQ/L (3.5-5.1); SODIUM LEVEL 140 MEQ/L (136-145)
[2022-08-05] MEDS ORDERED: MAG SULF 1GM/100ML (MAG RUN) 1 GM in IV 1 EA IV ONE (08:00)
[2022-08-05] MEDS: levETIRAcetam 250MG TABLET (KEPPRA) PO SCH ×2 (08:13→21:18)
[2022-08-05] MEDS: DOXYCYCLINE HYCLATE 100MG TABLET PO SCH (08:13)
[2022-08-05] MEDS: LACTOBACILLUS ACIDOPHILUS CAP (BACID) PO SCH (08:13)
[2022-08-05] MEDS ORDERED: POTASSIUM CHLORIDE 10% LIQ 20 MEQ/15 ML UDC PO ONE ×3 (08:15→13:05)
[2022-08-05] MEDS ORDERED: SODIUM CHLORIDE 0.9% INJ 10 ML SYR IV PRN (09:00)
[2022-08-05 09:12] LABS: HEMATOCRIT 25.4 % (36.0-47.0); HEMOGLOBIN 8.5 g/dl (12.0-15.5); MEAN CORPUSCULAR HEMOGLOBIN 31.4 pg (27.0-33.0); MEAN CORPUSCULAR HGB CONC 33.5 g/dl (32.0-36.5); MEAN CORPUSCULAR VOLUME 93.7 fl (80.0-96.0); RED BLOOD COUNT 2.71 10^6/uL (4.00-5.40); WHITE BLOOD COUNT 10.5 10^3/uL (4.0-10.0)
[2022-08-05] MEDS: SODIUM CHLORIDE 0.9% INJ 10 ML SYR IV SCH (09:14)
[2022-08-05 09:22] LABS: PLATELET COUNT, AUTOMATED 38 10^3/uL (150-450)
[2022-08-05 09:38] LABS: HEMATOCRIT 25.9 % (36.0-47.0); HEMOGLOBIN 8.9 g/dl (12.0-15.5); MEAN CORPUSCULAR HEMOGLOBIN 31.6 pg (27.0-33.0); MEAN CORPUSCULAR HGB CONC 34.4 g/dl (32.0-36.5); MEAN CORPUSCULAR VOLUME 91.8 fl (80.0-96.0); PLATELET COUNT, AUTOMATED 41 10^3/uL (150-450); RED BLOOD COUNT 2.82 10^6/uL (4.00-5.40); WHITE BLOOD COUNT 11.6 10^3/uL (4.0-10.0)
[2022-08-05 09:53] LABS: VITAMIN B12 LEVEL > 2000 PG/ML (247-911)
[2022-08-05] MEDS ORDERED: POTASSIUM CHLORIDE 10MEQ SR TABLET PO ONE ×3 (10:00→14:30)
[2022-08-05 12:30] VITALS: BP 124/59
[2022-08-05 16:28] VITALS: BP 112/67
[2022-08-05 20:25] VITALS: BP 103/51
[2022-08-05] MEDS: BENZONATATE 100MG CAPSULE PO SCH (21:18)
[2022-08-05] MEDS: ATORVASTATIN 20 MG TAB PO SCH (21:18)
[2022-08-05] MEDS: FAMOTIDINE 20 MG TAB PO SCH (21:18)
[2022-08-06] VITALS: BP 100/52
[2022-08-06] MEDS: BENZONATATE 100MG CAPSULE PO SCH ×3 (06:29→20:01)
[2022-08-06] MEDS: PIPERACILLIN/TAZOBACTAM SOD 4.5 GM in D5W MINI-BAG PLUS 50 ML IV SCH ×3 (06:29→18:26)
[2022-08-06] MEDS ORDERED: POTASSIUM CHLORIDE 10MEQ SR TABLET PO ONE ×2 (07:30→10:20)
[2022-08-06 07:46] LABS: HEMATOCRIT 26.1 % (36.0-47.0); HEMOGLOBIN 8.8 g/dl (12.0-15.5); MEAN CORPUSCULAR HEMOGLOBIN 31.3 pg (27.0-33.0); MEAN CORPUSCULAR HGB CONC 33.7 g/dl (32.0-36.5); MEAN CORPUSCULAR VOLUME 92.9 fl (80.0-96.0); RED BLOOD COUNT 2.81 10^6/uL (4.00-5.40); WHITE BLOOD COUNT 17.2 10^3/uL (4.0-10.0)
[2022-08-06 07:49] LABS: PLATELET COUNT, AUTOMATED 45 10^3/uL (150-450)
[2022-08-06] MEDS: BUDESONIDE 180MCG INHALER (PULMICORT FLEXHALER) INH SCH ×2 (07:52→20:00)
[2022-08-06 08:15] VITALS: BP 122/72
[2022-08-06 08:18] LABS: BLOOD UREA NITROGEN 9 MG/DL (7-18); CALCIUM LEVEL 7.9 MG/DL (8.8-10.2); CARBON DIOXIDE LEVEL 26 MEQ/L (21-32); CHLORIDE LEVEL 112 MEQ/L (98-107); GLOMERULAR FILTRATION RATE > 60.0 (>45); GLUCOSE, FASTING 87 MG/DL (70-100); MAGNESIUM LEVEL 1.8 MG/DL (1.8-2.4); POTASSIUM SERUM 3.1 MEQ/L (3.5-5.1); SODIUM LEVEL 142 MEQ/L (136-145)
[2022-08-06 08:35] LABS: LYMPHOCYTES 4 % (16-44); METAMYELOCYTES 3 % (0-0); MONOCYTES 1 % (0-5); MYELOCYTES 2 % (0-0); NEUTROPHILS 81 % (28-66)
[2022-08-06 08:36] LABS: DOHLE BODIES 1+; TOXIC GRANULATION 1+
[2022-08-06 08:37] LABS: GIANT PLATELETS 1+; PLATELET ESTIMATE DECREASED (NORMAL)
[2022-08-06 08:38] LABS: OVALOCYTES 1+
[2022-08-06] MEDS: LACTOBACILLUS ACIDOPHILUS CAP (BACID) PO SCH (09:21)
[2022-08-06] MEDS: levETIRAcetam 250MG TABLET (KEPPRA) PO SCH ×2 (09:22→20:01)
[2022-08-06] MEDS: guaiFENesin ER 600 MG TAB PO SCH ×2 (09:23→20:01)
[2022-08-06] MEDS: SODIUM CHLORIDE 0.9% INJ 10 ML SYR IV SCH (11:17)
[2022-08-06 12:14] VITALS: BP 112/56
[2022-08-06] MEDS: MAG SULF 1GM/100ML (MAG RUN) 1 GM in IV 1 EA IV SCH ×2 (12:46→13:50)
[2022-08-06] MEDS ORDERED: POTASSIUM PHOSPHATE INJ 18 MMOL in D5W 250 ML IV ONE (14:00)
[2022-08-06 16:01] VITALS: BP 127/58
[2022-08-06 19:44] VITALS: BP 114/53
[2022-08-06] MEDS: ATORVASTATIN 20 MG TAB PO SCH (20:00)
[2022-08-06] MEDS: FAMOTIDINE 20 MG TAB PO SCH (20:01)
[2022-08-06 23:56] VITALS: BP 115/64
[2022-08-07] MEDS: PIPERACILLIN/TAZOBACTAM SOD 4.5 GM in D5W MINI-BAG PLUS 50 ML IV SCH ×5 (00:41→22:36)
[2022-08-07 04:14] VITALS: BP 132/78
[2022-08-07] MEDS: BENZONATATE 100MG CAPSULE PO SCH ×3 (04:42→21:05)
[2022-08-07 05:55] LABS: HEMATOCRIT 25.5 % (36.0-47.0); HEMOGLOBIN 8.4 g/dl (12.0-15.5); MEAN CORPUSCULAR HEMOGLOBIN 31.6 pg (27.0-33.0); MEAN CORPUSCULAR HGB CONC 32.9 g/dl (32.0-36.5); MEAN CORPUSCULAR VOLUME 95.9 fl (80.0-96.0); RED BLOOD COUNT 2.66 10^6/uL (4.00-5.40)
[2022-08-07 06:00] LABS: PLATELET COUNT, AUTOMATED 51 10^3/uL (150-450)
[2022-08-07 06:20] LABS: BLOOD UREA NITROGEN 6 MG/DL (7-18); CALCIUM LEVEL 7.6 MG/DL (8.8-10.2); CARBON DIOXIDE LEVEL 25 MEQ/L (21-32); CHLORIDE LEVEL 109 MEQ/L (98-107); CREATININE FOR GFR 0.26 MG/DL (0.55-1.30); GLOMERULAR FILTRATION RATE > 60.0 (>45); GLUCOSE, FASTING 89 MG/DL (70-100); MAGNESIUM LEVEL 1.7 MG/DL (1.8-2.4); PHOSPHORUS LEVEL 2.5 MG/DL (2.5-4.9); POTASSIUM SERUM 3.2 MEQ/L (3.5-5.1); SODIUM LEVEL 140 MEQ/L (136-145)
[2022-08-07] MEDS: BUDESONIDE 180MCG INHALER (PULMICORT FLEXHALER) INH SCH ×2 (07:19→20:44)
[2022-08-07] MEDS: KCL 10MEQ/100ML SWI (KRUN) 10 MEQ in IV 1 EA IV SCH ×4 (07:24→13:59)
[2022-08-07 07:25] LABS: EOSINOPHILS 1 % (0-3); LYMPHOCYTES 5 % (16-44); METAMYELOCYTES 5 % (0-0); MONOCYTES 1 % (0-5); MYELOCYTES 5 % (0-0); NEUTROPHILS 79 % (28-66)
[2022-08-07 07:26] LABS: HYPERSEGMENTED POLYS 1+
[2022-08-07 07:28] LABS: OVALOCYTES 1+; TOXIC GRANULATION 1+
[2022-08-07 07:29] LABS: DOHLE BODIES 1+; PLATELET ESTIMATE DECREASED (NORMAL)
[2022-08-07 08:00] VITALS: BP 119/60
[2022-08-07] MEDS ORDERED: POTASSIUM PHOSPHATE INJ 20 MMOL in D5W 250 ML IV ONE (08:00)
[2022-08-07] MEDS: LACTOBACILLUS ACIDOPHILUS CAP (BACID) PO SCH (08:29)
[2022-08-07] MEDS: levETIRAcetam 250MG TABLET (KEPPRA) PO SCH ×2 (08:30→20:50)
[2022-08-07] MEDS: guaiFENesin ER 600 MG TAB PO SCH ×2 (08:30→20:50)
[2022-08-07] MEDS: MAG SULF 1GM/100ML (MAG RUN) 1 GM in IV 1 EA IV SCH ×2 (08:30→10:44)
[2022-08-07] MEDS: SODIUM CHLORIDE 0.9% INJ 10 ML SYR IV SCH (08:33)
[2022-08-07 12:00] VITALS: BP 119/57
[2022-08-07 15:08] LABS: BODY FLUID CULTURE Not Indicated (.); LEGIONELLA ANTIGEN URINE Negative (Negative); ORGANISM ID Not indicated. (.); SPECIMEN SOURCE Urine (.); URINE STREP PNEUMONIAE ANTIGEN Negative (Negative)
[2022-08-07 16:00] VITALS: BP 118/67
[2022-08-07 20:34] VITALS: BP 124/60
[2022-08-07] MEDS: ATORVASTATIN 20 MG TAB PO SCH (20:50)
[2022-08-07] MEDS: FAMOTIDINE 20 MG TAB PO SCH (20:50)
[2022-08-07 23:47] VITALS: BP 107/75
[2022-08-08] MEDS: BENZONATATE 100MG CAPSULE PO SCH ×3 (05:08→21:13)
[2022-08-08] MEDS: PIPERACILLIN/TAZOBACTAM SOD 4.5 GM in D5W MINI-BAG PLUS 50 ML IV SCH ×4 (05:09→22:41)
[2022-08-08 05:23] LABS: HEMATOCRIT 26.3 % (36.0-47.0); MEAN CORPUSCULAR HEMOGLOBIN 32.3 pg (27.0-33.0); MEAN CORPUSCULAR HGB CONC 34.2 g/dl (32.0-36.5); MEAN CORPUSCULAR VOLUME 94.3 fl (80.0-96.0); PLATELET COUNT, AUTOMATED 76 10^3/uL (150-450); RED BLOOD COUNT 2.79 10^6/uL (4.00-5.40); WHITE BLOOD COUNT 18.6 10^3/uL (4.0-10.0)
[2022-08-08 05:46] LABS: ANISOCYTOSIS 1+; DOHLE BODIES 1+; LYMPHOCYTES 5 % (16-44); METAMYELOCYTES 2 % (0-0); MONOCYTES 3 % (0-5); MYELOCYTES 7 % (0-0); NEUTROPHILS 83 % (28-66); PLATELET ESTIMATE DECREASED (NORMAL); POIKILOCYTOSIS 1+; TOXIC GRANULATION 1+; TOXIC VACUOLATION 1+
[2022-08-08 05:47] VITALS: BP 131/60
[2022-08-08 05:47] LABS: POLYCHROMASIA 1+
[2022-08-08 05:56] LABS: BLOOD UREA NITROGEN 4 MG/DL (7-18); CARBON DIOXIDE LEVEL 26 MEQ/L (21-32); CHLORIDE LEVEL 107 MEQ/L (98-107); CREATININE FOR GFR 0.26 MG/DL (0.55-1.30); GLOMERULAR FILTRATION RATE > 60.0 (>45); GLUCOSE, FASTING 84 MG/DL (70-100); MAGNESIUM LEVEL 1.7 MG/DL (1.8-2.4); POTASSIUM SERUM 3.1 MEQ/L (3.5-5.1); SODIUM LEVEL 140 MEQ/L (136-145)
[2022-08-08] MEDS ORDERED: MAG SULF 1GM/100ML (MAG RUN) 1 GM in IV 1 EA IV ONE ×2 (06:35→09:00)
[2022-08-08] MEDS: BUDESONIDE 180MCG INHALER (PULMICORT FLEXHALER) INH SCH ×2 (07:29→20:00)
[2022-08-08 07:57] VITALS: BP_SYST 129; BP_SYST 130; BP_DIAS 64; BP_DIAS 67
[2022-08-08] MEDS: SODIUM CHLORIDE 0.9% INJ 10 ML SYR IV SCH (08:34)
[2022-08-08] MEDS: levETIRAcetam 250MG TABLET (KEPPRA) PO SCH ×2 (08:34→21:13)
[2022-08-08] MEDS: LACTOBACILLUS ACIDOPHILUS CAP (BACID) PO SCH (08:34)
[2022-08-08] MEDS: guaiFENesin ER 600 MG TAB PO SCH ×2 (08:34→21:13)
[2022-08-08] MEDS: KCL 10MEQ/100ML SWI (KRUN) 10 MEQ in IV 1 EA IV SCH ×5 (10:00→22:44)
[2022-08-08] MEDS ORDERED: METO1TAB7 PO (10:34)
[2022-08-08] MEDS ORDERED: POTA-150 PO (10:34)
[2022-08-08] MEDS ORDERED: ESSE250T PO (10:35)
[2022-08-08 11:05] VITALS: BP 130/64
[2022-08-08] MEDS: METOPROLOL SUCC (TopROL XL) 50MG **XL** TAB PO SCH (11:05)
[2022-08-08 11:40] VITALS: BP 128/66
[2022-08-08 15:44] VITALS: BP 134/64
[2022-08-08 19:54] VITALS: BP 132/59
[2022-08-08] MEDS: ATORVASTATIN 20 MG TAB PO SCH (21:12)
[2022-08-08] MEDS: FAMOTIDINE 20 MG TAB PO SCH (21:13)
[2022-08-08] MEDS ORDERED: POTASSIUM CHLORIDE 10% LIQ 20 MEQ/15 ML UDC PO ONE (22:45)
[2022-08-09] VITALS: BP 132/59
[2022-08-09] MEDS: KCL 10MEQ/100ML SWI (KRUN) 10 MEQ in IV 1 EA IV SCH ×3 (00:02→02:20)
[2022-08-09 04:00] VITALS: BP 130/75
[2022-08-09] MEDS: PIPERACILLIN/TAZOBACTAM SOD 4.5 GM in D5W MINI-BAG PLUS 50 ML IV SCH (04:10)
[2022-08-09] MEDS: BENZONATATE 100MG CAPSULE PO SCH ×3 (05:40→20:11)
[2022-08-09 05:51] LABS: HEMATOCRIT 28.1 % (36.0-47.0); HEMOGLOBIN 9.1 g/dl (12.0-15.5); MEAN CORPUSCULAR HEMOGLOBIN 30.6 pg (27.0-33.0); MEAN CORPUSCULAR HGB CONC 32.4 g/dl (32.0-36.5); MEAN CORPUSCULAR VOLUME 94.6 fl (80.0-96.0); PLATELET COUNT, AUTOMATED 112 10^3/uL (150-450); RED BLOOD COUNT 2.97 10^6/uL (4.00-5.40); WHITE BLOOD COUNT 19.9 10^3/uL (4.0-10.0)
[2022-08-09 06:24] LABS: LYMPHOCYTES 5 % (16-44); METAMYELOCYTES 6 % (0-0); MONOCYTES 1 % (0-5); MYELOCYTES 5 % (0-0); NEUTROPHILS 80 % (28-66); PLATELET ESTIMATE DECREASED (NORMAL)
[2022-08-09 06:25] LABS: ANISOCYTOSIS 1+
[2022-08-09 06:26] LABS: TOXIC GRANULATION 1+
[2022-08-09 06:27] LABS: TOXIC VACUOLATION 1+
[2022-08-09 06:34] LABS: BLOOD UREA NITROGEN 4 MG/DL (7-18); CALCIUM LEVEL 7.6 MG/DL (8.8-10.2); CARBON DIOXIDE LEVEL 28 MEQ/L (21-32); CHLORIDE LEVEL 104 MEQ/L (98-107); CREATININE FOR GFR 0.32 MG/DL (0.55-1.30); GLOMERULAR FILTRATION RATE > 60.0 (>45); GLUCOSE, FASTING 78 MG/DL (70-100); MAGNESIUM LEVEL 1.9 MG/DL (1.8-2.4); PHOSPHORUS LEVEL 2.5 MG/DL (2.5-4.9); POTASSIUM SERUM 3.6 MEQ/L (3.5-5.1); SODIUM LEVEL 137 MEQ/L (136-145)
[2022-08-09 06:45] LABS: OVALOCYTES 1+
[2022-08-09 08:00] VITALS: BP 138/65
[2022-08-09] MEDS: BUDESONIDE 180MCG INHALER (PULMICORT FLEXHALER) INH SCH ×2 (08:00→20:46)
[2022-08-09] MEDS: LACTOBACILLUS ACIDOPHILUS CAP (BACID) PO SCH (08:55)
[2022-08-09] MEDS: METOPROLOL SUCC (TopROL XL) 50MG **XL** TAB PO SCH (08:56)
[2022-08-09] MEDS: levETIRAcetam 250MG TABLET (KEPPRA) PO SCH ×2 (08:56→20:12)
[2022-08-09] MEDS: SODIUM CHLORIDE 0.9% INJ 10 ML SYR IV SCH (08:56)
[2022-08-09] MEDS: guaiFENesin ER 600 MG TAB PO SCH ×2 (08:56→20:12)
[2022-08-09] MEDS ORDERED: FLUCONAZOLE 50MG TABLET PO SCH (09:00)
[2022-08-09] MEDS ORDERED: ENOXAPARIN 30MG/0.3ML SYRINGE (J1650 PER 10MG) SC SCH (11:15)
[2022-08-09] MEDS: LevoFLOXacin IV 750 MG in IV 1 EA IV SCH (11:19)
[2022-08-09] MEDS: ASPIRIN 81 MG CHEW TABLET PO SCH (11:20)
[2022-08-09] MEDS: ENTRESTO 24-26MG TABLET (SACUBITRIL/VALSARTAN) PO SCH ×2 (11:49→20:12)
[2022-08-09 12:00] VITALS: BP 129/60
[2022-08-09] MEDS: ENOXAPARIN 40MG/0.4ML SYRINGE (J1650 PER 10MG) SC SCH (14:13)
[2022-08-09 20:00] VITALS: BP 117/65
[2022-08-09] MEDS: FAMOTIDINE 20 MG TAB PO SCH (20:12)
[2022-08-09] MEDS: ATORVASTATIN 20 MG TAB PO SCH (20:12)
[2022-08-10 05:07] LABS: HEMATOCRIT 28.6 % (36.0-47.0); HEMOGLOBIN 9.2 g/dl (12.0-15.5); MEAN CORPUSCULAR HEMOGLOBIN 30.4 pg (27.0-33.0); MEAN CORPUSCULAR HGB CONC 32.2 g/dl (32.0-36.5); MEAN CORPUSCULAR VOLUME 94.4 fl (80.0-96.0); PLATELET COUNT, AUTOMATED 172 10^3/uL (150-450); RED BLOOD COUNT 3.03 10^6/uL (4.00-5.40)
[2022-08-10 05:27] LABS: ATYPICAL LYMPH 2 % (0-5); LYMPHOCYTES 5 % (16-44); METAMYELOCYTES 11 % (0-0); MONOCYTES 5 % (0-5); MYELOCYTES 2 % (0-0); NEUTROPHILS 69 % (28-66)
[2022-08-10 05:28] LABS: ANISOCYTOSIS 1+; PLATELET ESTIMATE NORMAL (NORMAL)
[2022-08-10 05:29] LABS: TOXIC GRANULATION 1+; TOXIC VACUOLATION 1+
[2022-08-10 05:30] LABS: OVALOCYTES 1+
[2022-08-10 05:53] LABS: BLOOD UREA NITROGEN 3 MG/DL (7-18); CALCIUM LEVEL 7.7 MG/DL (8.8-10.2); CARBON DIOXIDE LEVEL 28 MEQ/L (21-32); CHLORIDE LEVEL 102 MEQ/L (98-107); CREATININE FOR GFR 0.27 MG/DL (0.55-1.30); GLOMERULAR FILTRATION RATE > 60.0 (>45); GLUCOSE, FASTING 109 MG/DL (70-100); POTASSIUM SERUM 2.6 MEQ/L (3.5-5.1); SODIUM LEVEL 138 MEQ/L (136-145)
[2022-08-10] MEDS ORDERED: POTASSIUM CHLORIDE 10MEQ SR TABLET PO ONE (06:05)
[2022-08-10] MEDS: KCL 10MEQ/100ML SWI (KRUN) 10 MEQ in IV 1 EA IV SCH ×4 (06:16→10:02)
[2022-08-10] MEDS: BENZONATATE 100MG CAPSULE PO SCH ×3 (06:16→20:33)
[2022-08-10] MEDS: BUDESONIDE 180MCG INHALER (PULMICORT FLEXHALER) INH SCH ×2 (07:18→19:24)
[2022-08-10] MEDS: ENTRESTO 24-26MG TABLET (SACUBITRIL/VALSARTAN) PO SCH ×2 (08:47→20:33)
[2022-08-10] MEDS: LACTOBACILLUS ACIDOPHILUS CAP (BACID) PO SCH (08:47)
[2022-08-10] MEDS: levETIRAcetam 250MG TABLET (KEPPRA) PO SCH ×2 (08:48→20:33)
[2022-08-10] MEDS: ASPIRIN 81 MG CHEW TABLET PO SCH (08:48)
[2022-08-10] MEDS: METOPROLOL SUCC (TopROL XL) 50MG **XL** TAB PO SCH (08:48)
[2022-08-10] MEDS: guaiFENesin ER 600 MG TAB PO SCH ×2 (08:48→20:32)
[2022-08-10] MEDS: ENOXAPARIN 40MG/0.4ML SYRINGE (J1650 PER 10MG) SC SCH (08:49)
[2022-08-10] MEDS: SODIUM CHLORIDE 0.9% INJ 10 ML SYR IV SCH (09:00)
[2022-08-10] MEDS: LevoFLOXacin IV 750 MG in IV 1 EA IV SCH (11:15)
[2022-08-10 19:37] VITALS: BP 98/55
[2022-08-10] MEDS: FAMOTIDINE 20 MG TAB PO SCH (20:32)
[2022-08-10] MEDS: ATORVASTATIN 20 MG TAB PO SCH (20:33)
[2022-08-11 00:54] VITALS: BP 107/59
[2022-08-11] MEDS: BENZONATATE 100MG CAPSULE PO SCH ×3 (06:13→20:21)
[2022-08-11 06:24] LABS: BLOOD UREA NITROGEN 4 MG/DL (7-18); CALCIUM LEVEL 7.5 MG/DL (8.8-10.2); CARBON DIOXIDE LEVEL 27 MEQ/L (21-32); CHLORIDE LEVEL 105 MEQ/L (98-107); CREATININE FOR GFR 0.25 MG/DL (0.55-1.30); GLOMERULAR FILTRATION RATE > 60.0 (>45); GLUCOSE, FASTING 87 MG/DL (70-100); POTASSIUM SERUM 3.1 MEQ/L (3.5-5.1); SODIUM LEVEL 140 MEQ/L (136-145)
[2022-08-11] MEDS: BUDESONIDE 180MCG INHALER (PULMICORT FLEXHALER) INH SCH ×2 (07:12→19:35)
[2022-08-11 08:23] VITALS: BP 116/56
[2022-08-11] MEDS: METOPROLOL SUCC (TopROL XL) 50MG **XL** TAB PO SCH (08:39)
[2022-08-11] MEDS: LACTOBACILLUS ACIDOPHILUS CAP (BACID) PO SCH (08:39)
[2022-08-11] MEDS: ASPIRIN 81 MG CHEW TABLET PO SCH (08:39)
[2022-08-11] MEDS: ENTRESTO 24-26MG TABLET (SACUBITRIL/VALSARTAN) PO SCH ×2 (08:40→20:21)
[2022-08-11] MEDS: levETIRAcetam 250MG TABLET (KEPPRA) PO SCH ×2 (08:40→20:20)
[2022-08-11] MEDS: SODIUM CHLORIDE 0.9% INJ 10 ML SYR IV SCH (08:40)
[2022-08-11] MEDS: ENOXAPARIN 40MG/0.4ML SYRINGE (J1650 PER 10MG) SC SCH (08:40)
[2022-08-11] MEDS: guaiFENesin ER 600 MG TAB PO SCH ×2 (08:40→20:20)
[2022-08-11] MEDS ORDERED: POTASSIUM CHLORIDE 10MEQ SR TABLET PO SCH (09:00)
[2022-08-11] MEDS: LevoFLOXacin IV 750 MG in IV 1 EA IV SCH (09:51)
[2022-08-11] MEDS ORDERED: POTASSIUM CHLORIDE 10MEQ SR TABLET PO ONE (11:00)
[2022-08-11 12:34] VITALS: BP 110/58
[2022-08-11 16:00] VITALS: BP 123/57
[2022-08-11 20:00] VITALS: BP 123/62
[2022-08-11] MEDS: ATORVASTATIN 20 MG TAB PO SCH (20:20)
[2022-08-11] MEDS: POTASSIUM CHLORIDE 10MEQ SR TABLET PO SCH (20:20)
[2022-08-11] MEDS: FAMOTIDINE 20 MG TAB PO SCH (20:21)
[2022-08-12] MEDS: BENZONATATE 100MG CAPSULE PO SCH ×2 (05:14→13:37)
[2022-08-12 06:07] LABS: BLOOD UREA NITROGEN 5 MG/DL (7-18); CALCIUM LEVEL 7.7 MG/DL (8.8-10.2); CARBON DIOXIDE LEVEL 26 MEQ/L (21-32); CHLORIDE LEVEL 109 MEQ/L (98-107); CREATININE FOR GFR 0.23 MG/DL (0.55-1.30); GLOMERULAR FILTRATION RATE > 60.0 (>45); GLUCOSE, FASTING 92 MG/DL (70-100); POTASSIUM SERUM 3.9 MEQ/L (3.5-5.1); SODIUM LEVEL 141 MEQ/L (136-145)
[2022-08-12 08:00] VITALS: BP 126/59
[2022-08-12] MEDS: BUDESONIDE 180MCG INHALER (PULMICORT FLEXHALER) INH SCH (08:06)
[2022-08-12] MEDS: ENOXAPARIN 40MG/0.4ML SYRINGE (J1650 PER 10MG) SC SCH (09:00)
[2022-08-12] MEDS: POTASSIUM CHLORIDE 10MEQ SR TABLET PO SCH (09:11)
[2022-08-12] MEDS: ENTRESTO 24-26MG TABLET (SACUBITRIL/VALSARTAN) PO SCH (09:11)
[2022-08-12] MEDS: levETIRAcetam 250MG TABLET (KEPPRA) PO SCH (09:12)
[2022-08-12] MEDS: ASPIRIN 81 MG CHEW TABLET PO SCH (09:12)
[2022-08-12] MEDS: LACTOBACILLUS ACIDOPHILUS CAP (BACID) PO SCH (09:12)
[2022-08-12] MEDS: guaiFENesin ER 600 MG TAB PO SCH (09:12)
[2022-08-12] MEDS: SODIUM CHLORIDE 0.9% INJ 10 ML SYR IV SCH (09:37)
[2022-08-12] MEDS: LevoFLOXacin IV 750 MG in IV 1 EA IV SCH (09:37)
[2022-08-12] MEDS ORDERED: BACITRACIN OINTMENT 30GM TUBE TOP ONE (16:35)
[2022-08-12] MEDS ORDERED: SODIUM CHLORIDE 0.9% INJ 10 ML SYR IV PRN (16:35)
== END 2022-08-12 18:41 | disposition home or self-care (01) | DRG 206 ==
LOC: EDBD 19:14 → M ED 19:14 → M ED INP 22:11 → ENRESERV 23:22 → M PCU 08-04 01:48
PROVIDERS: ADMIT Internal Medicine; ATTEND Internal Medicine
PROC: 30233N1 Transfusion of Nonautologous Red Blood Cells into Peripheral Vein, Percutaneous Approach (ICD-10-PCS; principal; 2022-08-04)
DX: T82.7XXA Infection and inflammatory reaction due to other cardiac and vascular devices, implants and grafts, initial encounter (principal); A41.9 Sepsis, unspecified organism; I25.10 Atherosclerotic heart disease of native coronary artery without angina pectoris; E87.6 Hypokalemia; N17.9 Acute kidney failure, unspecified; J18.9 Pneumonia, unspecified organism; J96.12 Chronic respiratory failure with hypercapnia; Z95.0 Presence of cardiac pacemaker; K21.9 Gastro-esophageal reflux disease without esophagitis; Z87.891 Personal history of nicotine dependence; Z92.21 Personal history of antineoplastic chemotherapy; C79.31 Secondary malignant neoplasm of brain; C79.70 Secondary malignant neoplasm of unspecified adrenal gland; C34.90 Malignant neoplasm of unspecified part of unspecified bronchus or lung; Z66 Do not resuscitate; J44.9 Chronic obstructive pulmonary disease, unspecified; Z99.81 Dependence on supplemental oxygen; J96.11 Chronic respiratory failure with hypoxia; G47.33 Obstructive sleep apnea (adult) (pediatric); Z79.82 Long term (current) use of aspirin; Z79.899 Other long term (current) drug therapy; I50.22 Chronic systolic (congestive) heart failure; D61.818 Other pancytopenia; D64.9 Anemia, unspecified; I25.2 Old myocardial infarction; D69.6 Thrombocytopenia, unspecified; Y83.1 Surgical operation with implant of artificial internal device as the cause of abnormal reaction of the patient, or of later complication, without mention of misadventure at the time of the procedure

== ENCOUNTER 2022-08-13 14:45 | Outpatient (CLI) | payer OTHER ==
[~2022-08-13] VITALS: Ht 165.1 cm; Wt 62.0 kg
[~2022-08-13 14:45] MED LIST changes: +ASPI81CH33 PO; +ATOR80TA59 PO; +ESSE250T PO; +LevoFLOXacin IV 750 MG in IV 1 EA IV ONE; +METO1TAB7 PO; +MUCI1TAB16 PO; +POTA-150 PO; +SODIUM CHLORIDE 0.9% INJ 10 ML SYR IV PRN
[2022-08-13 14:49] VITALS: BP 118/56
[2022-08-13 16:24] VITALS: BP 111/55
[2022-08-14] MEDS ORDERED: SODIUM CHLORIDE 0.9% INJ 10 ML SYR IV SCH (09:00)
== END 2022-08-13 16:30 | disposition home or self-care (01) ==
LOC: M INFU 14:45
PROVIDERS: ATTEND Internal Medicine Infectious Disease
DX: B96.5 Pseudomonas (aeruginosa) (mallei) (pseudomallei) as the cause of diseases classified elsewhere (principal)
CPT/HCPCS: 96365; J1642; J1956

== ENCOUNTER 2022-08-14 13:45 | Outpatient (CLI) | payer OTHER ==
[~2022-08-14] VITALS: Ht 157.5 cm; Wt 62.0 kg
[~2022-08-14 13:45] MED LIST changes: -LevoFLOXacin IV 750 MG in IV 1 EA IV ONE; -SODIUM CHLORIDE 0.9% INJ 10 ML SYR IV PRN; +SODIUM CHLORIDE 0.9% INJ 10 ML SYR IV SCH
[2022-08-14] MEDS ORDERED: SODIUM CHLORIDE 0.9% INJ 10 ML SYR IV PRN (14:00)
[2022-08-14 14:01] VITALS: BP 112/63
[2022-08-14] MEDS ORDERED: LevoFLOXacin IV 750 MG in IV 1 EA IV ONE (15:00)
[2022-08-14 15:50] VITALS: BP 100/48
== END 2022-08-14 15:00 | disposition home or self-care (01) ==
LOC: M INFU 13:45
PROVIDERS: ATTEND Internal Medicine Infectious Disease
DX: B96.5 Pseudomonas (aeruginosa) (mallei) (pseudomallei) as the cause of diseases classified elsewhere (principal); Z16.20 Resistance to unspecified antibiotic
CPT/HCPCS: 96365; 96366; J1642; J1956

== ENCOUNTER 2022-08-15 14:00 | Outpatient (CLI) | payer OTHER ==
[~2022-08-15] VITALS: Ht 157.5 cm; Wt 62.0 kg
[2022-08-15 14:34] VITALS: BP 117/55
[2022-08-15] MEDS ORDERED: LevoFLOXacin IV 750 MG in IV 1 EA IV ONE (15:00)
[2022-08-15] MEDS ORDERED: SODIUM CHLORIDE 0.9% INJ 10 ML SYR IV PRN (15:00)
[2022-08-15 16:07] VITALS: BP 118/67
== END 2022-08-15 16:08 | disposition home or self-care (01) ==
LOC: M INFU 14:00
PROVIDERS: ATTEND Internal Medicine Infectious Disease
DX: R78.81 Bacteremia (principal); B96.5 Pseudomonas (aeruginosa) (mallei) (pseudomallei) as the cause of diseases classified elsewhere; C80.1 Malignant (primary) neoplasm, unspecified; C79.31 Secondary malignant neoplasm of brain
CPT/HCPCS: 96365; J1642; J1956

== ENCOUNTER 2022-08-16 13:44 | Outpatient (CLI) | payer OTHER ==
[2022-08-16 14:05] VITALS: BP 127/60
[2022-08-16] MEDS ORDERED: LevoFLOXacin IV 750 MG in IV 1 EA IV ONE (15:00)
[2022-08-16] MEDS ORDERED: SODIUM CHLORIDE 0.9% INJ 10 ML SYR IV PRN (15:00)
[2022-08-16 16:00] VITALS: BP 112/64
== END 2022-08-16 16:00 | disposition home or self-care (01) ==
LOC: M INFU 13:44
PROVIDERS: ATTEND Internal Medicine Infectious Disease
DX: R78.81 Bacteremia (principal); B96.5 Pseudomonas (aeruginosa) (mallei) (pseudomallei) as the cause of diseases classified elsewhere; C80.1 Malignant (primary) neoplasm, unspecified; C79.31 Secondary malignant neoplasm of brain
CPT/HCPCS: 96365; 96366; J1642; J1956

== ENCOUNTER 2022-08-17 12:03 | Outpatient (CLI) | payer OTHER ==
[~2022-08-17 12:03] MED LIST changes: -SODIUM CHLORIDE 0.9% INJ 10 ML SYR IV SCH
[2022-08-17 12:30] VITALS: BP 110/75
[2022-08-17] MEDS ORDERED: LevoFLOXacin IV 750 MG in IV 1 EA IV ONE (13:00)
[2022-08-17 14:35] VITALS: BP 113/73
== END 2022-08-17 14:50 | disposition home or self-care (01) ==
LOC: M OPCLI5PR 12:03 → M MS5PR 12:08 → M OPCLI5PR 14:50
PROVIDERS: ATTEND Nurse Practitioner Family
DX: R78.81 Bacteremia (principal); B96.5 Pseudomonas (aeruginosa) (mallei) (pseudomallei) as the cause of diseases classified elsewhere; C80.1 Malignant (primary) neoplasm, unspecified; C79.31 Secondary malignant neoplasm of brain
CPT/HCPCS: 96365; 96366; J1956

== ENCOUNTER 2022-08-18 11:07 | Outpatient (CLI) | payer OTHER ==
[~2022-08-18] VITALS: Ht 165.1 cm; Wt 58.8 kg
[2022-08-18 11:31] VITALS: BP 115/61
[2022-08-18] MEDS ORDERED: LevoFLOXacin IV 750 MG in IV 1 EA IV ONE (12:00)
[2022-08-18] MEDS ORDERED: SODIUM CHLORIDE 0.9% INJ 10 ML SYR IV ONE (13:45)
== END 2022-08-18 14:06 | disposition home or self-care (01) ==
LOC: M OPCLIICU 11:07 → M ICU 11:29 → M OPCLIICU 14:06
PROVIDERS: ATTEND Internal Medicine Infectious Disease
DX: R78.81 Bacteremia (principal); B96.5 Pseudomonas (aeruginosa) (mallei) (pseudomallei) as the cause of diseases classified elsewhere; C80.1 Malignant (primary) neoplasm, unspecified; C79.31 Secondary malignant neoplasm of brain
CPT/HCPCS: 96365; 96366; J1642; J1956

== ENCOUNTER 2022-08-19 13:50 | Outpatient (CLI) | payer OTHER ==
[~2022-08-19] VITALS: Ht 162.6 cm; Wt 64.5 kg
[2022-08-19 13:50] VITALS: BP 129/61
[~2022-08-19 13:50] MED LIST changes: +SODIUM CHLORIDE 0.9% INJ 10 ML SYR IV SCH
[2022-08-19] MEDS ORDERED: SODIUM CHLORIDE 0.9% INJ 10 ML SYR IV PRN (15:00)
[2022-08-19] MEDS ORDERED: LevoFLOXacin IV 750 MG in IV 1 EA IV ONE (15:00)
[2022-08-19 16:45] VITALS: BP 108/62
== END 2022-08-19 16:45 | disposition home or self-care (01) ==
LOC: M INFU 13:50
PROVIDERS: ATTEND Internal Medicine Infectious Disease
DX: R78.81 Bacteremia (principal); B96.5 Pseudomonas (aeruginosa) (mallei) (pseudomallei) as the cause of diseases classified elsewhere; C80.1 Malignant (primary) neoplasm, unspecified; C79.31 Secondary malignant neoplasm of brain
CPT/HCPCS: 96365; 96366; J1642; J1956

== ENCOUNTER → 2022-08-30 | Outpatient (CLI) | payer OTHER ==
[~2022-08-30] VITALS: Ht 165.1 cm; Wt 59.2 kg
[~2022-08-30] MED LIST changes: -SODIUM CHLORIDE 0.9% INJ 10 ML SYR IV SCH
[2022-08-30 10:56] VITALS: BP 134/68
== END ==
LOC: M PAL 09:50
PROVIDERS: ATTEND Nurse Practitioner Adult Health
DX: C34.2 Malignant neoplasm of middle lobe, bronchus or lung (principal); C78.7 Secondary malignant neoplasm of liver and intrahepatic bile duct; C79.31 Secondary malignant neoplasm of brain; C79.70 Secondary malignant neoplasm of unspecified adrenal gland; C78.02 Secondary malignant neoplasm of left lung; I49.5 Sick sinus syndrome; T82.7XXD Infection and inflammatory reaction due to other cardiac and vascular devices, implants and grafts, subsequent encounter; A41.9 Sepsis, unspecified organism; R06.02 Shortness of breath; R05.8 Other specified cough; R53.83 Other fatigue; R63.0 Anorexia; Z92.3 Personal history of irradiation; Z92.21 Personal history of antineoplastic chemotherapy; Z87.891 Personal history of nicotine dependence; Z51.5 Encounter for palliative care; Z66 Do not resuscitate; Z79.51 Long term (current) use of inhaled steroids; Z79.82 Long term (current) use of aspirin; Z95.0 Presence of cardiac pacemaker; Z80.42 Family history of malignant neoplasm of prostate

== ENCOUNTER → 2022-09-26 | Outpatient (CLI) | payer OTHER ==
[~2022-09-26] VITALS: Ht 165.1 cm; Wt 61.6 kg
[~2022-09-26] MED LIST changes: +POTA8CAP10 PO
[2022-09-26 08:51] VITALS: BP 132/92
== END ==
LOC: M PAL 08:28
PROVIDERS: ATTEND Nurse Practitioner Adult Health
DX: C34.2 Malignant neoplasm of middle lobe, bronchus or lung (principal); C78.7 Secondary malignant neoplasm of liver and intrahepatic bile duct; C79.31 Secondary malignant neoplasm of brain; C79.70 Secondary malignant neoplasm of unspecified adrenal gland; C78.02 Secondary malignant neoplasm of left lung; Z87.891 Personal history of nicotine dependence; I49.5 Sick sinus syndrome; Z95.0 Presence of cardiac pacemaker; Z92.3 Personal history of irradiation; Z92.21 Personal history of antineoplastic chemotherapy; Z51.5 Encounter for palliative care; Z66 Do not resuscitate; Z79.51 Long term (current) use of inhaled steroids; Z79.899 Other long term (current) drug therapy

== ENCOUNTER → 2022-10-21 | Outpatient (REF) | payer OTHER ==
[2022-10-21 18:19] LABS: CHLORIDE LEVEL 97 MMOL/L (98-107); SODIUM LEVEL 141 MMOL/L (136-145)
[2022-10-21 18:20] LABS: CARBON DIOXIDE LEVEL 31 MMOL/L (20-31)
[2022-10-21 18:25] LABS: BLOOD UREA NITROGEN 13 MG/DL (9-23); CALCIUM LEVEL 7.3 MG/DL (8.3-10.6); GLUCOSE, FASTING 123 MG/DL (74-106); TRIGLYCERIDES LEVEL 125 MG/DL (<150)
[2022-10-21 18:26] LABS: HDL CHOLESTEROL 32.4 MG/DL (>40)
[2022-10-21 18:28] LABS: CHOLESTEROL LEVEL 139 MG/DL (<200); CHOLESTEROL RISK RATIO 4.29 (<5); CREATININE FOR GFR 0.55 MG/DL (0.55-1.30); GLOMERULAR FILTRATION RATE > 60.0 (>45); LDL CHOLESTEROL 81.6 MG/DL (<100); NON-HDL-C 107 MG/DL
== END ==
LOC: M SFHCCLAY 09:50
PROVIDERS: ATTEND Nurse Practitioner Family
DX: E83.42 Hypomagnesemia (principal); E78.5 Hyperlipidemia, unspecified

== ENCOUNTER → 2022-10-22 | Outpatient (CLI) | payer OTHER ==
[~2022-10-22] MED LIST changes: +GASTROGRAFIN SOLUTION 30ML As Ordered ONE; +ISOVUE-370 76% 100ML VIAL As Ordered ONE
== END ==
LOC: M RAD 09:24
PROVIDERS: ATTEND Internal Medicine Hematology & Oncology
DX: C34.90 Malignant neoplasm of unspecified part of unspecified bronchus or lung (principal); C78.7 Secondary malignant neoplasm of liver and intrahepatic bile duct; N28.1 Cyst of kidney, acquired; E27.8 Other specified disorders of adrenal gland; J43.9 Emphysema, unspecified; J90 Pleural effusion, not elsewhere classified; I70.0 Atherosclerosis of aorta; I25.10 Atherosclerotic heart disease of native coronary artery without angina pectoris

== ENCOUNTER → 2022-11-05 | Outpatient (CLI) | payer OTHER ==
[~2022-11-05] VITALS: Ht 165.1 cm; Wt 56.1 kg
[~2022-11-05] MED LIST changes: +DEXA2TA PO; -GASTROGRAFIN SOLUTION 30ML As Ordered ONE; -ISOVUE-370 76% 100ML VIAL As Ordered ONE; +POTA-136 PO
[2022-11-05 10:28] VITALS: BP 118/82
== END ==
LOC: M PAL 10:14
PROVIDERS: ATTEND Nurse Practitioner Adult Health
DX: C34.2 Malignant neoplasm of middle lobe, bronchus or lung (principal); C78.7 Secondary malignant neoplasm of liver and intrahepatic bile duct; C79.31 Secondary malignant neoplasm of brain; C79.70 Secondary malignant neoplasm of unspecified adrenal gland; C78.02 Secondary malignant neoplasm of left lung; I49.5 Sick sinus syndrome; J37.0 Chronic laryngitis; R53.83 Other fatigue; Z63.4 Disappearance and death of family member; Z87.891 Personal history of nicotine dependence; Z95.0 Presence of cardiac pacemaker; Z92.3 Personal history of irradiation; Z92.21 Personal history of antineoplastic chemotherapy; Z51.5 Encounter for palliative care; Z66 Do not resuscitate; Z79.51 Long term (current) use of inhaled steroids; Z79.899 Other long term (current) drug therapy

== ENCOUNTER → 2022-11-14 | Outpatient (CLI) | payer OTHER | LOC: M ONCR 08:41 | PROVIDERS: ATTEND General Practice | DX: C34.31 Malignant neoplasm of lower lobe, right bronchus or lung (principal); C79.31 Secondary malignant neoplasm of brain; I10 Essential (primary) hypertension; J38.01 Paralysis of vocal cords and larynx, unilateral; K76.9 Liver disease, unspecified; R06.09 Other forms of dyspnea; Z79.52 Long term (current) use of systemic steroids; Z79.624 Long term (current) use of inhibitors of nucleotide synthesis; Z79.899 Other long term (current) drug therapy; Z80.42 Family history of malignant neoplasm of prostate; Z87.891 Personal history of nicotine dependence; Z95.0 Presence of cardiac pacemaker | CPT/HCPCS: 31575; G0463 ==

== ENCOUNTER 2022-11-22 12:32 | Outpatient (RCR) | payer OTHER ==
[~2022-11-22 12:32] MED LIST changes: +NYST-38 PO; -NYST50SS PO
== END 2022-11-23 ==
LOC: M ONCR 12:32
PROVIDERS: ATTEND General Practice
DX: C34.31 Malignant neoplasm of lower lobe, right bronchus or lung (principal)

== ENCOUNTER 2022-11-26 11:12 | Outpatient (RCR) | payer OTHER ==
[2022-11-30] MEDS ORDERED: DEXA2TA PO (21:16)
[2022-11-30] MEDS ORDERED: POTA8CAP10 PO (21:16)
[2022-11-30] MEDS ORDERED: METO1TAB7 PO (21:16)
[2022-11-30] MEDS ORDERED: MED REC COMMENT (21:17)
== END 2022-12-05 ==
LOC: M ONCR 11:12
PROVIDERS: ATTEND General Practice
DX: C34.31 Malignant neoplasm of lower lobe, right bronchus or lung (principal)

== ENCOUNTER → 2022-11-27 | Outpatient (REF) | payer OTHER ==
[~2022-11-27] MED LIST changes: +MED REC COMMENT
[2022-11-27 18:00] LABS: MAGNESIUM LEVEL 1.6 MG/DL (1.8-2.4)
[2022-11-27 18:04] LABS: BLOOD UREA NITROGEN 24 MG/DL (9-23); CALCIUM LEVEL 9.6 MG/DL (8.3-10.6); CARBON DIOXIDE LEVEL 21 MMOL/L (20-31); CHLORIDE LEVEL 97 MMOL/L (98-107); CREATININE FOR GFR 0.84 MG/DL (0.55-1.30); GLOMERULAR FILTRATION RATE > 60.0 (>45); GLUCOSE, FASTING 113 MG/DL (74-106); POTASSIUM SERUM 4.2 MMOL/L (3.5-5.1); SODIUM LEVEL 137 MMOL/L (136-145)
== END ==
LOC: M SFHCCLAY 14:35
PROVIDERS: ATTEND Nurse Practitioner Family
DX: E87.6 Hypokalemia (principal); E83.42 Hypomagnesemia

== ENCOUNTER 2022-11-30 17:25 | Inpatient (IN) | payer OTHER ==
[~2022-11-30] VITALS: Ht 165.1 cm; Wt 58.0 kg
[~2022-11-30 17:25] MED LIST changes: -MED REC COMMENT
[2022-11-30] MEDS ORDERED: LORazepam 2 MG/ML VIAL IV STA (17:39)
[2022-11-30] MEDS ORDERED: NS 1,000 ML IV SCH (17:50)
[2022-11-30 17:52] LABS: VENOUS BASE EXCESS -12.1 (-2.0-2.0); VENOUS HCO3 15.7 MEQ/L (23.0-27.0); VENOUS O2 SATURATION 94.3 % (60.0-80.0); VENOUS PARTIAL PRESSURE O2 93.2 mmHg (30.0-50.0); VENOUS PH 7.181 UNITS (7.330-7.430)
[2022-11-30] MEDS ORDERED: NS 1,000 ML IV ONE ×2 (17:55)
[2022-11-30 17:56] LABS: HEMATOCRIT 36.9 % (36.0-47.0); HEMOGLOBIN 11.3 g/dl (12.0-15.5); MEAN CORPUSCULAR HEMOGLOBIN 30.5 pg (27.0-33.0); MEAN CORPUSCULAR HGB CONC 30.6 g/dl (32.0-36.5); MEAN CORPUSCULAR VOLUME 99.7 fl (80.0-96.0); PLATELET COUNT, AUTOMATED 182 10^3/uL (150-450); WHITE BLOOD COUNT 21.9 10^3/uL (4.0-10.0)
[2022-11-30] MEDS ORDERED: cefTRIAXone SOD 2 GM in D5W MINI-BAG PLUS 50 ML IV ONE (18:10)
[2022-11-30] MEDS ORDERED: levETIRAcetam INJection 1,000 MG in D5W 100 ML IV ONE (18:15)
[2022-11-30 18:31] LABS: BILIRUBIN,DIRECT 2.9 MG/DL (<0.4)
[2022-11-30 18:32] LABS: OSMOLALITY SERUM 297 MOSM/KG (280-301)
[2022-11-30 18:33] LABS: THYROID STIMULATING HORMONE 2.221 uIU/ML (0.55-4.78)
[2022-11-30 18:34] LABS: MAGNESIUM LEVEL 1.8 MG/DL (1.8-2.4)
[2022-11-30 18:40] LABS: BASOPHILS 1 % (0-1); LYMPHOCYTES 7 % (16-44); METAMYELOCYTES 5 % (0-0); MONOCYTES 6 % (0-5); MYELOCYTES 6 % (0-0); NEUTROPHILS 69 % (28-66); NUCLEATED RED BLOOD CELL 2 % (0-0)
[2022-11-30 18:41] LABS: ANISOCYTOSIS 1+; MICROCYTOSIS 1+; PLATELET ESTIMATE NORMAL (NORMAL)
[2022-11-30 19:19] LABS: ALBUMIN 2.7 G/DL (3.2-5.2); ALKALINE PHOSPHATASE 1212 U/L (46-116); ALT/SGPT 99 U/L (7.0-40); AST/SGOT 393 U/L (<34); BILIRUBIN,TOTAL 3.7 MG/DL (0.3-1.2); BLOOD UREA NITROGEN 32 MG/DL (9-23); CALCIUM LEVEL 10.5 MG/DL (8.3-10.6); CARBON DIOXIDE LEVEL 16 MMOL/L (20-31); CHLORIDE LEVEL 101 MMOL/L (98-107); GLOMERULAR FILTRATION RATE > 60.0 (>45); GLUCOSE, FASTING 129 MG/DL (74-106); POTASSIUM SERUM 3.6 MMOL/L (3.5-5.1); SODIUM LEVEL 139 MMOL/L (136-145); TOTAL PROTEIN 5.9 G/DL (5.7-8.2)
[2022-11-30] MEDS ORDERED: METO1TAB7 PO (21:16)
[2022-11-30] MEDS ORDERED: DEXA2TA PO (21:16)
[2022-11-30] MEDS ORDERED: POTA8CAP10 PO (21:16)
[2022-11-30] MEDS ORDERED: MED REC COMMENT (21:17)
[2022-11-30] MEDS ORDERED: HOME MED LIST COMPLETE! XX SCH (21:20)
[2022-11-30] MEDS ORDERED: SODIUM CHLORIDE 0.9% INJ 10 ML SYR IV PRN (22:55)
[2022-11-30] MEDS ORDERED: ALBUTEROL SULFATE 2.5MG/0.5ML INH NEB SOLN NEB PRN (22:55)
[2022-11-30] MEDS: IPRATROPIUM 0.5MG/ALBUTEROL 2.5MG INH SOL UD 3ML (DUONEB) NEB SCH (23:23)
[2022-12-01] MEDS: D5W/0.9% SODIUM CHLORIDE 1,000 ML IV SCH ×2 (02:36→08:55)
[2022-12-01 05:16] VITALS: BP 140/67
[2022-12-01] MEDS: levETIRAcetam INJection 1,000 MG in D5W 100 ML IV SCH ×2 (05:19→19:39)
[2022-12-01] MEDS: HEPARIN SOD (PORCINE) 5000UNITS/ML 1ML VIAL/SYRINGE SQ SCH ×3 (05:19→22:13)
[2022-12-01] MEDS: IPRATROPIUM 0.5MG/ALBUTEROL 2.5MG INH SOL UD 3ML (DUONEB) NEB SCH ×4 (07:05→20:20)
[2022-12-01 07:23] LABS: VENOUS BASE EXCESS -4.2 (-2.0-2.0); VENOUS HCO3 18.8 MEQ/L (23.0-27.0); VENOUS O2 SATURATION 99.5 % (60.0-80.0); VENOUS PARTIAL PRESSURE CO2 27.8 mmHg (38.0-50.0); VENOUS PARTIAL PRESSURE O2 184.6 mmHg (30.0-50.0); VENOUS PH 7.447 UNITS (7.330-7.430); VENOUS TOTAL CO2 19.6 MEQ/L (24.0-28.0)
[2022-12-01] MEDS: SODIUM CHLORIDE 0.9% INJ 10 ML SYR IV SCH (09:00)
[2022-12-01] MEDS ORDERED: METOPROLOL SUCC (TopROL XL) 50MG **XL** TAB PO SCH (09:00)
[2022-12-01 10:05] LABS: MAGNESIUM LEVEL 1.4 MG/DL (1.8-2.4)
[2022-12-01 10:07] LABS: HEMATOCRIT 30.9 % (36.0-47.0); HEMOGLOBIN 9.7 g/dl (12.0-15.5); MEAN CORPUSCULAR HEMOGLOBIN 30.7 pg (27.0-33.0); MEAN CORPUSCULAR HGB CONC 31.4 g/dl (32.0-36.5); MEAN CORPUSCULAR VOLUME 97.8 fl (80.0-96.0); PLATELET COUNT, AUTOMATED 128 10^3/uL (150-450); RED BLOOD COUNT 3.16 10^6/uL (4.00-5.40)
[2022-12-01 10:24] LABS: ALBUMIN 2.1 G/DL (3.2-5.2); ALKALINE PHOSPHATASE 967 U/L (46-116); ALT/SGPT 80 U/L (7.0-40); AST/SGOT 311 U/L (<34); BILIRUBIN,TOTAL 2.6 MG/DL (0.3-1.2); BLOOD UREA NITROGEN 23 MG/DL (9-23); CALCIUM LEVEL 8.7 MG/DL (8.3-10.6); CARBON DIOXIDE LEVEL 19 MMOL/L (20-31); CHLORIDE LEVEL 106 MMOL/L (98-107); CREATININE FOR GFR 0.59 MG/DL (0.55-1.30); GLOMERULAR FILTRATION RATE > 60.0 (>45); GLUCOSE, FASTING 99 MG/DL (74-106); POTASSIUM SERUM 3.4 MMOL/L (3.5-5.1); SODIUM LEVEL 140 MMOL/L (136-145); TOTAL PROTEIN 4.8 G/DL (5.7-8.2)
[2022-12-01 10:27] LABS: EOSINOPHILS 1 % (0-3); LYMPHOCYTES 3 % (16-44); METAMYELOCYTES 2 % (0-0); MONOCYTES 1 % (0-5); MYELOCYTES 2 % (0-0); NEUTROPHILS 83 % (28-66)
[2022-12-01 10:29] LABS: ANISOCYTOSIS 2+; PLATELET ESTIMATE DECREASED (NORMAL); POIKILOCYTOSIS 1+; POLYCHROMASIA 1+
[2022-12-01 12:00] VITALS: BP 134/61
[2022-12-01] MEDS: D5W/0.45% SODIUM CHLORIDE 1,000 ML IV SCH (12:00)
[2022-12-01] MEDS: PIPERACILLIN/TAZOBACTAM SOD 3.375 GM in D5W MINI-BAG PLUS 50 ML IV SCH ×2 (14:19→19:46)
[2022-12-01] MEDS ORDERED: FLUID PLACE HOLDER IV SCH (16:45)
[2022-12-01] MEDS ORDERED: VANCOMYCIN HCL IV SCH (16:45)
[2022-12-01] MEDS ORDERED: VANCOMYCIN HCL 1,000 MG, VIAL MATE ADAPTER 1 EACH in D5W 250 ML IV ONE (17:00)
[2022-12-01 17:52] VITALS: BP 143/82
[2022-12-01 21:50] VITALS: BP 131/66
[2022-12-01] MEDS ORDERED: VANCOMYCIN HCL 1,000 MG, VIAL MATE ADAPTER 1 EACH in D5W 250 ML IV SCH (22:00)
[2022-12-01] MEDS ORDERED: LR 1,000 ML IV ONE (22:10)
[2022-12-01 22:43] LABS: VENOUS BASE EXCESS -7.6 (-2.0-2.0); VENOUS HCO3 15.3 MEQ/L (23.0-27.0); VENOUS PARTIAL PRESSURE CO2 23.6 mmHg (38.0-50.0); VENOUS PARTIAL PRESSURE O2 140.6 mmHg (30.0-50.0); VENOUS PH 7.431 UNITS (7.330-7.430); VENOUS STANDARD HCO3 18.3 MEQ/L; VENOUS TOTAL CO2 16.1 MEQ/L (24.0-28.0)
[2022-12-01 23:20] LABS: ALKALINE PHOSPHATASE 930 U/L (46-116); ALT/SGPT 69 U/L (7.0-40); AST/SGOT 354 U/L (<34); BILIRUBIN,TOTAL 2.8 MG/DL (0.3-1.2); BLOOD UREA NITROGEN 24 MG/DL (9-23); CALCIUM LEVEL 8.9 MG/DL (8.3-10.6); CARBON DIOXIDE LEVEL 12 MMOL/L (20-31); CHLORIDE LEVEL 105 MMOL/L (98-107); CREATININE FOR GFR 0.72 MG/DL (0.55-1.30); GLOMERULAR FILTRATION RATE > 60.0 (>45); GLUCOSE, FASTING 100 MG/DL (74-106); POTASSIUM SERUM 3.4 MMOL/L (3.5-5.1); SODIUM LEVEL 138 MMOL/L (136-145); TOTAL PROTEIN 4.6 G/DL (5.7-8.2)
[2022-12-02] VITALS (27 sets, daily range): BP systolic 120–148; BP diastolic 60–78; O2SAT 94–100
[2022-12-02] MEDS: THIAMINE 200MG 2ML VIAL IV SCH ×2 (00:05→21:04)
[2022-12-02] MEDS: IPRATROPIUM 0.5MG/ALBUTEROL 2.5MG INH SOL UD 3ML (DUONEB) NEB SCH ×6 (00:52→20:04)
[2022-12-02] MEDS: PIPERACILLIN/TAZOBACTAM SOD 3.375 GM in D5W MINI-BAG PLUS 50 ML IV SCH ×4 (01:08→19:33)
[2022-12-02] MEDS: levETIRAcetam INJection 1,000 MG in D5W 100 ML IV SCH ×2 (05:24→17:41)
[2022-12-02] MEDS: HEPARIN SOD (PORCINE) 5000UNITS/ML 1ML VIAL/SYRINGE SQ SCH ×3 (05:35→21:04)
[2022-12-02] MEDS: D5W/0.45% SODIUM CHLORIDE 1,000 ML IV SCH (05:35)
[2022-12-02 06:37] LABS: HEMATOCRIT 26.7 % (36.0-47.0); HEMOGLOBIN 8.4 g/dl (12.0-15.5); MEAN CORPUSCULAR HEMOGLOBIN 30.7 pg (27.0-33.0); MEAN CORPUSCULAR HGB CONC 31.5 g/dl (32.0-36.5); MEAN CORPUSCULAR VOLUME 97.4 fl (80.0-96.0); RED BLOOD COUNT 2.74 10^6/uL (4.00-5.40); WHITE BLOOD COUNT 26.8 10^3/uL (4.0-10.0)
[2022-12-02 06:50] LABS: BILIRUBIN,DIRECT 2.4 MG/DL (<0.4)
[2022-12-02 06:51] LABS: ALBUMIN 2.1 G/DL (3.2-5.2); ALKALINE PHOSPHATASE 875 U/L (46-116); ALT/SGPT 77 U/L (7.0-40); AST/SGOT 330 U/L (<34); BLOOD UREA NITROGEN 21 MG/DL (9-23); CALCIUM LEVEL 9.1 MG/DL (8.3-10.6); CARBON DIOXIDE LEVEL 15 MMOL/L (20-31); CHLORIDE LEVEL 103 MMOL/L (98-107); CREATININE FOR GFR 0.71 MG/DL (0.55-1.30); GLOMERULAR FILTRATION RATE > 60.0 (>45); GLUCOSE, FASTING 125 MG/DL (74-106); POTASSIUM SERUM 3.3 MMOL/L (3.5-5.1); SODIUM LEVEL 137 MMOL/L (136-145); TOTAL PROTEIN 4.6 G/DL (5.7-8.2)
[2022-12-02 07:08] LABS: PLATELET COUNT, AUTOMATED 97 10^3/uL (150-450)
[2022-12-02] MEDS: SODIUM CHLORIDE 0.9% INJ 10 ML SYR IV SCH (08:08)
[2022-12-02 08:34] LABS: LYMPHOCYTES 1 % (16-44); METAMYELOCYTES 6 % (0-0); MONOCYTES 3 % (0-5); NEUTROPHILS 82 % (28-66)
[2022-12-02 08:37] LABS: ANISOCYTOSIS 2+; HYPOCHROMASIA 1+
[2022-12-02 08:38] LABS: PLATELET ESTIMATE DECREASED (NORMAL)
[2022-12-02] MEDS: POTASSIUM CHLORIDE 10MEQ SR TABLET PO SCH ×2 (09:00→21:03)
[2022-12-02] MEDS: KCL 20MEQ IN 100ML SWI (KRUN) 20 MEQ in IV 1 EA IV SCH ×4 (11:00→13:17)
[2022-12-02] MEDS ORDERED: ISOVUE-370 76% 100ML VIAL As Ordered ONE (11:08)
[2022-12-02] MEDS ORDERED: VANCOMYCIN HCL 750 MG, VIAL MATE ADAPTER 1 EACH in D5W 250 ML IV SCH (12:00)
[2022-12-02] MEDS ORDERED: KCL 20MEQ IN 100ML SWI (KRUN) 20 MEQ in IV 1 EA IV SCH ×2 (16:00)
[2022-12-03] VITALS (8 sets, daily range): BP systolic 121–136; BP diastolic 56–85; O2SAT 97–98
[2022-12-03] MEDS: PIPERACILLIN/TAZOBACTAM SOD 3.375 GM in D5W MINI-BAG PLUS 50 ML IV SCH ×3 (01:20→13:57)
[2022-12-03] MEDS: IPRATROPIUM 0.5MG/ALBUTEROL 2.5MG INH SOL UD 3ML (DUONEB) NEB SCH ×4 (04:00→12:11)
[2022-12-03] MEDS: D5W/0.45% SODIUM CHLORIDE 1,000 ML IV SCH ×2 (04:00→05:36)
[2022-12-03 04:52] LABS: HEMATOCRIT 24.6 % (36.0-47.0); HEMOGLOBIN 7.9 g/dl (12.0-15.5); MEAN CORPUSCULAR HEMOGLOBIN 30.4 pg (27.0-33.0); MEAN CORPUSCULAR HGB CONC 32.1 g/dl (32.0-36.5); MEAN CORPUSCULAR VOLUME 94.6 fl (80.0-96.0); WHITE BLOOD COUNT 27.3 10^3/uL (4.0-10.0)
[2022-12-03 05:17] LABS: PLATELET COUNT, AUTOMATED 94 10^3/uL (150-450)
[2022-12-03 05:30] LABS: BILIRUBIN,DIRECT 2.7 MG/DL (<0.4)
[2022-12-03 05:32] LABS: BILIRUBIN,TOTAL 3.3 MG/DL (0.3-1.2); CALCIUM LEVEL 9.5 MG/DL (8.3-10.6); CREATININE FOR GFR 1.11 MG/DL (0.55-1.30); GLOMERULAR FILTRATION RATE 52.7 (>45); POTASSIUM SERUM 4.7 MMOL/L (3.5-5.1); TOTAL PROTEIN 4.8 G/DL (5.7-8.2)
[2022-12-03 05:37] LABS: LYMPHOCYTES 2 % (16-44); METAMYELOCYTES 5 % (0-0); MONOCYTES 1 % (0-5); MYELOCYTES 6 % (0-0); NEUTROPHILS 82 % (28-66); PLATELET ESTIMATE DECREASED (NORMAL)
[2022-12-03 05:38] LABS: ANISOCYTOSIS 2+
[2022-12-03] MEDS: HEPARIN SOD (PORCINE) 5000UNITS/ML 1ML VIAL/SYRINGE SQ SCH (06:00)
[2022-12-03] MEDS: levETIRAcetam INJection 1,000 MG in D5W 100 ML IV SCH (06:07)
[2022-12-03] MEDS: SODIUM CHLORIDE 0.9% INJ 10 ML SYR IV SCH (08:07)
[2022-12-03] MEDS ORDERED: MORPHINE 10MG/0.5ML ORAL CONCENTRATE SOLUTION U/D SL PRN (14:25)
[2022-12-03] MEDS ORDERED: ATROPINE SULFATE 1% OPHTH SOLN 2ML BTL SL PRN (14:25)
[2022-12-03] MEDS ORDERED: ACETAMINOPHEN 650MG SUPP PR PRN (14:25)
[2022-12-03] MEDS: LORazepam 1 MG TAB PO PRN (20:02)
[2022-12-03] MEDS ORDERED: levETIRAcetam 250MG TABLET (KEPPRA) PO SCH (21:00)
[2022-12-04] MEDS: LORazepam 1 MG TAB PO PRN (10:55)
[2022-12-04] MEDS: MORPHINE 2 MG/ML 1ML VIAL IV PRN ×2 (13:50→19:04)
[2022-12-04] MEDS: LORazepam 2 MG/ML VIAL IV PRN ×2 (13:50→19:11)
== END 2022-12-05 02:09 | disposition expired | DRG 720 ==
LOC: EDBD 17:25 → M ED 18:18 → M ED INP 22:31 → M PCU 12-01 21:44
PROVIDERS: ADMIT Internal Medicine; ATTEND Internal Medicine
DX: A41.9 Sepsis, unspecified organism (principal); G93.6 Cerebral edema; E43 Unspecified severe protein-calorie malnutrition; I67.83 Posterior reversible encephalopathy syndrome; G93.41 Metabolic encephalopathy; J91.0 Malignant pleural effusion; J18.9 Pneumonia, unspecified organism; C78.7 Secondary malignant neoplasm of liver and intrahepatic bile duct; E87.20 Acidosis, unspecified; C79.31 Secondary malignant neoplasm of brain; I50.32 Chronic diastolic (congestive) heart failure; C79.70 Secondary malignant neoplasm of unspecified adrenal gland; D69.6 Thrombocytopenia, unspecified; I49.5 Sick sinus syndrome; R17 Unspecified jaundice; R16.0 Hepatomegaly, not elsewhere classified; G40.409 Other generalized epilepsy and epileptic syndromes, not intractable, without status epilepticus; C34.31 Malignant neoplasm of lower lobe, right bronchus or lung; Z66 Do not resuscitate; D64.9 Anemia, unspecified; G40.909 Epilepsy, unspecified, not intractable, without status epilepticus; J44.9 Chronic obstructive pulmonary disease, unspecified; I25.2 Old myocardial infarction; Z92.3 Personal history of irradiation; Z92.21 Personal history of antineoplastic chemotherapy; Z20.822 Contact with and (suspected) exposure to COVID-19; Z95.5 Presence of coronary angioplasty implant and graft; Z90.79 Acquired absence of other genital organ(s); Z87.891 Personal history of nicotine dependence; Z79.899 Other long term (current) drug therapy